=== PATIENT | female | born 1935 | race American Indian/Alaskan Native ===

== ENCOUNTER 2018-03-14 16:20 | Emergency (ER) | payer OTHER ==
[2018-03-14] MEDS ORDERED: ALBUTEROL 2.5 MG/3 ML NEB SOL ONE (17:12)
--- NOTE | 2018-03-14 17:17 | RAD REPORT ---
EXAM DESCRIPTION: Sonia Bolivar (2 Views)03/14/2018 5:04 pm CLINICAL HISTORY: Cough COMPARISON: July 2017 FINDINGS: The lungs appear clear of acute infiltrate. The heart is borderline enlarged IMPRESSION: No acute abnormalities displayed
--- NOTE | 2018-03-14 17:49 | EDPHYS ---
Physician Documentation [facility] Name: Eder Girard Age: 82 yrs Sex: Female : 1935 Arrival Date: 03/14/2018 Time: 16:21 Bed 26 Private MD: Roddy Mccarthy ED Physician Prasanth Talley HPI: 03/14 17:21 This 82 yrs old Other Female presents to ER via Ambulatory with complaints of Cough. snw 17:21 The patient or guardian reports cough, that is constant, with productive sputum, clear. snw Onset: The symptoms/episode began/occurred suddenly, 2 day(s) ago, and became persistent. Severity of symptoms: At their worst the symptoms were moderate. Modifying factors: The symptoms are alleviated by nothing. Associated signs and symptoms: Pertinent positives: chest pain, diarrhea, sore throat, discomfort to ribs from coughing, this patient has no pertinent positive symptoms. It is unknown whether or not the patient has had similar symptoms in the past. The patient has not recently seen a physician, the patient's primary care provider is Dr. Dr. Mccarthy. Historical: - Allergies: 16:28 PENICILLINS; la1 16:28 Codeine; la1 - PMHx: 16:28 Atrial Fib; Hypertension; la1 - Immunization history:: Adult Immunizations up to date. - Social history:: Smoking status: Patient/guardian denies using tobacco. ROS: 16:48 Constitutional: Negative for fever, chills, and weight loss, Eyes: Negative for injury, snw pain, redness, and discharge, ENT: Negative for injury, pain, and discharge, Neck: Negative for injury, pain, and swelling, Cardiovascular: Negative for chest pain, palpitations, and edema, Abdomen/GI: Negative for abdominal pain, nausea, vomiting, diarrhea, and constipation, Back: Negative for injury and pain, : Negative for injury, bleeding, discharge, and swelling, MS/Extremity: Negative for injury and deformity, Skin: Negative for injury, rash, and discoloration, Neuro: Negative for headache, weakness, numbness, tingling, and seizure. 16:48 Respiratory: Positive for cough, with clear sputum. Exam: 16:47 Constitutional: This is a well developed, well nourished patient who is awake, alert, snw and in no acute distress. Head/Face: Normocephalic, atraumatic. Eyes: Pupils equal round and reactive to light, extra-ocular motions intact. Lids and lashes normal. Conjunctiva and sclera are non-icteric and not injected. Cornea within normal limits. Periorbital areas with no swelling, redness, or edema. ENT: Nares patent. No nasal discharge, no septal abnormalities noted. Tympanic membranes are normal and external auditory canals are clear. Oropharynx with no redness, swelling, or masses, exudates, or evidence of obstruction, uvula midline. Mucous membranes moist. Neck: Trachea midline, no thyromegaly or masses palpated, and no cervical lymphadenopathy. Supple, full range of motion without nuchal rigidity, or vertebral point tenderness. No Meningismus. Chest/axilla: Normal chest wall appearance and motion. Nontender with no deformity. No lesions are appreciated. Cardiovascular: Regular rate and rhythm with a normal S1 and S2. No gallops, murmurs, or rubs. Normal PMI, no JVD. No pulse deficits. Abdomen/GI: Soft, non-tender, with normal bowel sounds. No distension or tympany. No guarding or rebound. No evidence of tenderness throughout. Back: No spinal tenderness. No costovertebral tenderness. Full range of motion. Skin: Warm, dry with normal turgor. Normal color with no rashes, no lesions, and no evidence of cellulitis. MS/ Extremity: Pulses equal, no cyanosis. Neurovascular intact. Full, normal range of motion. Neuro: Awake and alert, GCS 15, oriented to person, place, time, and situation. Cranial nerves II-XII grossly intact. Motor strength 5/5 in all extremities. Sensory grossly intact. Cerebellar exam normal. Normal gait. 16:47 Respiratory: the patient does not display signs of respiratory distress, Respirations: normal, shallow respirations, Breath sounds: wheezing: expiratory bronchitic cough. Vital Signs: 16:28 BP 143 / 83; Pulse 63; Resp 19; Temp 98.1(TE); Pulse Ox 97% on R/A; Weight 73.48 kg; la1 Height 5 ft. 3 in. (160.02 cm); 17:48 BP 144 / 77; Pulse 60; Resp 18; Pulse Ox 98% on R/A; kr2 16:28 Body Mass Index 28.70 (73.48 kg, 160.02 cm) la1 MDM: 16:34 Patient medically screened. snw 17:27 Data reviewed: vital signs, nurses notes. Data interpreted: Pulse oximetry: on room air snw is 97 %. Interpretation: normal. Counseling: I had a detailed discussion with the patient and/or guardian regarding: the historical points, exam findings, and any diagnostic results supporting the discharge/admit diagnosis, the presence of at least one elevated blood pressure reading (>120/80) during this emergency department visit, radiology results, the need for outpatient follow up, to return to the emergency department if symptoms worsen or persist or if there are any questions or concerns that arise at home. Special discussion: Based on the patient's history, exam, and Dx evaluation, there is no indication for emergent intervention or inpatient Tx. It is understood by the patient/guardian that if the Sx's persist or worsen they need to return immediately for re-evaluation. I have referred the patient to see his PCP for further evaluation of high blood pressure. Based on the history and exam findings, there is no indication for further emergent testing or inpatient evaluation. I discussed with the patient/guardian the need to see the primary care provider for further evaluation of the symptoms. 03/14 16:34 Order name: Chest Pa And Lat (2 Views) XRAY; Complete Time: 17:20 snw Administered Medications: 17:17 Drug: Albuterol 2.5 mg Route: Inhalation; kr2 17:29 Follow up: Response: No adverse reaction kr2 Disposition: 03/14/18 17:48 Discharged to Home. Impression: Cough. - Condition is Stable. - Discharge Instructions: Cool Mist Vaporizers, Cough, Adult, [id number]. - Prescriptions for Tessalon Perles 100 mg Oral Capsule - take 1 capsule by ORAL route every 8 hours As needed; 15 capsule. Albuterol Sulfate 90 mcg/actuation - inhale 1-2 puff by INHALATION route every 4-6 hours; 1 Inhaler. - Medication Reconciliation Form, Thank You Letter, Antibiotic Education, Prescription Opioid Use form. - Follow up: Roddy Mccarthy; When: 2 - 3 days; Reason: Recheck today's complaints, Continuance of care, Re-evaluation by your physician. Follow up: Emergency Department; When: As needed; Reason: Worsening of condition. Signatures: Dispatcher [employer] Skylar Oliva, CARRIE-C DATABASE MARKETING MANAGER-Csnw Darrion Nielsen, RN RN la1 Amanda Collins RN RN kr2
--- NOTE | 2018-03-14 17:49 | ER ---
Nurse's Notes [facility] Name: Eder Girard Age: 82 yrs Sex: Female : 1935 Arrival Date: 03/14/2018 Time: 16:21 Bed 26 Private MD: Roddy Mccarthy Diagnosis: Cough Presentation: 03/14 16:27 Presenting complaint: Patient states: I have had a cough for the last 2 days and I want la1 to be sure I am not developing PNE. Transition of care: patient was not received from another setting of care. Onset of symptoms was March 14, 2018. Initial Sepsis Screen: Does the patient meet any 2 criteria? No. Patient's initial sepsis screen is negative. Does the patient have a suspected source of infection? No. Patient's initial sepsis screen is negative. Care prior to arrival: None. 16:27 Method Of Arrival: Ambulatory la1 16:27 Acuity: MARC 4 la1 Historical: - Allergies: 16:28 PENICILLINS; la1 16:28 Codeine; la1 - PMHx: 16:28 Atrial Fib; Hypertension; la1 - Immunization history:: Adult Immunizations up to date. - Social history:: Smoking status: Patient/guardian denies using tobacco. Screenin:31 Abuse screen: Denies threats or abuse. Denies injuries from another. Nutritional kr2 screening: No deficits noted. Tuberculosis screening: No symptoms or risk factors identified. Fall Risk Fall in past 12 months (25 points). IV access (20 points). Assessment: 16:45 General: Appears in no apparent distress. comfortable, well groomed, well developed, kr2 well nourished, Behavior is calm, cooperative. Pain: Denies pain. Neuro: Level of Consciousness is awake, alert, Oriented to person, place, time, situation, Appropriate for age. Cardiovascular: Capillary refill < 3 seconds in bilateral fingers Patient's skin is warm and dry. Respiratory: Reports cough that is non-productive, persistent Airway is patent Respiratory effort is even, unlabored, Respiratory pattern is regular, symmetrical. GI: Abdomen is flat, non-distended. : No signs and/or symptoms were reported regarding the genitourinary system. EENT: Nares are clear bilaterally Oral mucosa is moist. Derm: Skin is intact, is healthy with good turgor, Skin is pink, warm \T\ dry. Musculoskeletal: Circulation, motion, and sensation intact. 17:50 Reassessment: Patient appears in no apparent distress at this time. Patient and/or kr2 family updated on plan of care and expected duration. Pain level reassessed. Patient is alert, oriented x 3, equal unlabored respirations, skin warm/dry/pink. Patient denies pain at this time. Vital Signs: 16:28 BP 143 / 83; Pulse 63; Resp 19; Temp 98.1(TE); Pulse Ox 97% on R/A; Weight 73.48 kg; la1 Height 5 ft. 3 in. (160.02 cm); 17:48 BP 144 / 77; Pulse 60; Resp 18; Pulse Ox 98% on R/A; kr2 16:28 Body Mass Index 28.70 (73.48 kg, 160.02 cm) la1 ED Course: 16:21 Patient arrived in ED. as 16:22 Roddy Mccarthy MD is Private Physician. as 16:28 Triage completed. la1 16:28 Arm band placed on right wrist. la1 16:35 Prasanth Talley MD is Attending Physician. snw 16:35 Skylar Reese FNP-C [facility]. snw 16:40 Amanda Collins, ROMANA is Primary Nurse. kr2 16:45 Patient has correct armband on for positive identification. Bed in low position. Call kr2 light in reach. Side rails up X2. Adult w/ patient. Pulse ox on. NIBP on. Door closed. Warm blanket given. Head of bed elevated. 17:01 X-ray completed. Patient tolerated procedure well. Patient moved to radiology via ag1 wheelchair. 17:03 Chest Pa And Lat (2 Views) XRAY In Process Unspecified. EDMS 17:48 Roddy Mccarthy MD is Referral Physician. snw 17:53 No provider procedures requiring assistance completed. Patient did not have IV access kr2 during this emergency room visit. Administered Medications: 17:17 Drug: Albuterol 2.5 mg Route: Inhalation; kr2 17:29 Follow up: Response: No adverse reaction kr2 Outcome: 17:48 Discharge ordered by . snw 17:53 Discharged to home ambulatory, with family. kr2 17:53 Condition: good 17:53 Discharge instructions given to patient, family, Instructed on discharge instructions, follow up and referral plans. medication usage, Demonstrated understanding of instructions, follow-up care, medications, Prescriptions given X 2. 17:54 Patient left the ED. kr2 Signatures: Dispatcher [employer] EDMS Skylar Reese, DATABASE MARKETING MANAGER-C DATABASE MARKETING MANAGER-Csnw Saida Parikh Lee RN RN la1 Sonia Ballard ag1 Amanda Collins RN RN kr2 Corrections: (The following items were deleted from the chart) 17:32 17:29 BP 148 / 67 Supine; Pulse 70bpm; kr2 kr2 17:32 17:29 BP 145 / 71 Sitting; Pulse 70bpm; kr2 kr2 17:32 17:29 BP 160 / 74 Standing; Pulse 80bpm; Says she feels very weak upon standing; kr2 kr2
[2018-03-14 18:03] VITALS: TEMP 98.1
[2018-03-14 18:04] VITALS: BP 144/77; O2SAT 98
== END 2018-03-14 17:54 | disposition home or self-care (01) ==
LOC: ER 16:20
DX: R05 Cough (principal); Z88.0 Allergy status to penicillin; Z88.6 Allergy status to analgesic agent
CPT/HCPCS: 71046; 99284

== ENCOUNTER 2018-05-09 20:49 | Inpatient (IN) | payer OTHER ==
--- NOTE | 2018-05-09 22:20 | ER ---
Nurse's Notes [facility] Name: Eder Girard Age: 82 yrs Sex: Female : 1935 Arrival Date: 05/09/2018 Time: 20:52 Bed 17 Private MD: Roddy Mccarthy Diagnosis: Abdominal tenderness;Nausea;Nausea and vomiting Presentation: 05/09 21:13 Presenting complaint: Patient states: "I have been having abdominal pain for about 9 bs1 hours, I have had an obstruction before and it feels like that." patient reports nausea. Transition of care: patient was not received from another setting of care. Onset of symptoms was May 09, 2018 at 12:00. Risk Assessment: Do you want to hurt yourself or someone else? Patient reports no desire to harm self or others. Initial Sepsis Screen: Does the patient meet any 2 criteria? No. Patient's initial sepsis screen is negative. Does the patient have a suspected source of infection? No. Patient's initial sepsis screen is negative. Care prior to arrival: None. 21:13 Method Of Arrival: Ambulatory bs1 21:13 Acuity: MARC 3 bs1 Historical: - Allergies: 21:16 Codeine; bs1 21:16 PENICILLINS; bs1 - Home Meds: 21:16 Metoprolol Tartrate Oral [Active]; Eliquis oral oral [Active]; Hydrochlorothiazide Oral bs1 [Active]; - PMHx: 21:16 Atrial Fib; Hypertension; bowel obstruction; bs1 - PSHx: 21:16 colon sx; ; Cholecystectomy; Tonsillectomy; bs1 - Immunization history:: Adult Immunizations up to date. - Social history:: Smoking status: Patient/guardian denies using tobacco. - Ebola Screening: : Patient negative for fever greater than or equal to 101.5 degrees Fahrenheit, and additional compatible Ebola Virus Disease symptoms Patient denies exposure to infectious person. - Family history:: not pertinent. Screenin:17 Abuse screen: Denies threats or abuse. Denies injuries from another. Nutritional bs1 screening: No deficits noted. Tuberculosis screening: No symptoms or risk factors identified. Fall Risk None identified. Assessment: 22:03 General: Appears distressed, uncomfortable, well groomed, Behavior is calm, mb3 cooperative, appropriate for age. Pain: Complains of pain in right upper quadrant and left upper quadrant. Neuro: No deficits noted. Level of Consciousness is awake, alert, obeys commands, Oriented to person, place, time, situation, Appropriate for age. Cardiovascular: No deficits noted. Heart tones present Pulses are all present. Respiratory: Airway is patent Respiratory effort is even, unlabored, Respiratory pattern is regular, symmetrical, Breath sounds are clear bilaterally. GI: Abdomen is round obese, Bowel sounds present X 4 quads. Abd is soft Abdomen is tender to palpation in right upper quadrant and left upper quadrant. : No signs and/or symptoms were reported regarding the genitourinary system. Musculoskeletal: No deficits noted. No signs and/or symptoms reported regarding the musculoskeletal system. 23:00 Reassessment: Patient appears in no apparent distress at this time. Patient and/or mb3 family updated on plan of care and expected duration. Pain level reassessed. Patient is alert, oriented x 3, equal unlabored respirations, skin warm/dry/pink. Patient denies pain at this time. Vital Signs: 21:17 BP 157 / 96; Pulse 63; Resp 16; Pulse Ox 96% on R/A; Weight 73.48 kg; Height 5 ft. 3 bs1 in. (160.02 cm); Pain 10/10; 22:59 BP 163 / 54; Pulse 59; Resp 20; Pulse Ox 95% on R/A; mb3 21:17 Body Mass Index 28.70 (73.48 kg, 160.02 cm) bs1 ED Course: 20:52 Patient arrived in ED. es 20:53 Roddy Mccarthy MD is Private Physician. es 21:15 Triage completed. bs1 21:17 Patient has correct armband on for positive identification. Placed in gown. Bed in low bs1 position. Call light in reach. Side rails up X 1. Pulse ox on. NIBP on. 21:21 Marcel Sims MD is Attending Physician. [facility] 21:22 Peg Jo, ROMANA is Primary Nurse. bs1 21:22 Inserted saline lock: 22 gauge in right antecubital area, using aseptic technique. bs1 Blood collected. 22:19 Lizeth Salgado MD is Hospitalizing Provider. [facility] 05/10 00:04 Radiology exam delayed due to Patient did not finish oral contrast until 2340. Will do mw3 CT exam at approx. 0100. 01:[address] via wheelchair. kw1 01:21 CT completed. Patient tolerated procedure well. Patient moved back from [place]. kw1 01:46 No provider procedures requiring assistance completed. Patient admitted, IV remains in [address] place. 01:47 Arm band placed on. 3 Administered Medications: 05/09 22:30 Drug: NS 0.9% 500 ml Route: IV; Rate: bolus; Site: right antecubital; [facility] 05/10 01:47 Follow up: Response: No adverse reaction; IV Status: Completed infusion; IV Intake: mb3 500ml 05/09 22:30 Drug: NS 0.9% 1000 ml Route: IV; Rate: 125 ml/hr; Site: right antecubital; [facility] 05/10 01:48 Follow up: Response: No adverse reaction; IV Status: Infusion continued upon admission; [facility] IV Intake: 250ml 05/09 22:30 Drug: Pepcid 20 mg Route: IVP; Site: right antecubital; [facility] 05/10 01:48 Follow up: Response: No adverse reaction [facility] 05/09 22:30 Drug: Zofran 4 mg Route: IVP; Site: right antecubital; [facility] 05/10 01:48 Follow up: Response: No adverse reaction [facility] 05/09 22:30 Drug: fentaNYL (PF) 25 mcg Route: IVP; Site: right antecubital; [facility] 05/10 01:49 Follow up: Response: No adverse reaction [facility] 05/09 22:58 Drug: Flagyl 500 mg Volume: 100 ml; Route: IVPB; Rate: 200 ml/hr; Infused Over: 30 mb3 mins; Site: right antecubital; 05/10 01:49 Follow up: Response: No adverse reaction; IV Status: Completed infusion; IV Intake: mb3 100ml 00:02 Drug: Cipro 400 mg Volume: 200 ml; Route: IVPB; Infused Over: 60 mins; Site: right 3 antecubital; 01:49 Follow up: Response: No adverse reaction; IV Status: Completed infusion; IV Intake: mb3 200ml 00:03 Drug: fentaNYL (PF) 25 mcg Route: IVP; Site: right antecubital; [facility] 01:48 Follow up: Response: No adverse reaction mb3 00:27 Drug: morphine 4 mg Route: IVP; Site: right antecubital; mb3 01:50 Follow up: Response: No adverse reaction mb3 00:27 Drug: Zofran 4 mg Route: IVP; Site: right antecubital; mb3 01:50 Follow up: Response: No adverse reaction mb3 Intake: 01:47 IV: 500ml; Total: 500ml. mb3 01:48 IV: 250ml; Total: 750ml. mb3 01:49 IV: 200ml; Total: 950ml. mb3 01:49 IV: 100ml; Total: 1050ml. mb3 Outcome: 05/09 22:20 Decision to Hospitalize by Provider. [facility] 05/10 01:43 Admitted to Tele accompanied by tech, via stretcher, room 220, with chart, Report mb3 called to Brittany Bartlett RN Condition: stable Instructed on the need for admit. 01:56 Patient left the ED. mb3 Signatures: Marcel Sims MD MD cha Salyer, Edna es Wilhelm, Kimberly kw1 Peg Jo RN RN bs1 Cortes Lira RN RN mb3 Omayra Giordano mw3
--- NOTE | 2018-05-09 22:21 | EDPHYS ---
Physician Documentation [facility] Name: Eder Griard Age: 82 yrs Sex: Female : 1935 Arrival Date: 05/09/2018 Time: 20:52 Bed 17 Private MD: Roddy Mccarthy ED Physician Marcel Sims HPI: 05/09 22:16 This 82 yrs old Other Female presents to ER via Ambulatory with complaints of Abdominal maddie Pain. 22:16 The patient presents with abdominal pain in the epigastric area, in the upper abdomen, maddie abdominal distention in the epigastric area, in the upper abdomen. Onset: The symptoms/episode began/occurred 2 day(s) ago. The patient presents to the emergency department with nausea, vomiting, abdominal pain, of the epigastric area, right upper quadrant and left upper quadrant. Onset: The symptoms/episode began/occurred 1 day(s) ago. Possible causes: unknown. The symptoms are aggravated by movement, pressure, food , The symptoms are alleviated by nothing. remaining still. Associated signs and symptoms: Pertinent positives: abdominal pain, nausea, vomiting. Historical: - Allergies: 21:16 Codeine; bs1 21:16 PENICILLINS; bs1 - Home Meds: 21:16 Metoprolol Tartrate Oral [Active]; Eliquis oral oral [Active]; Hydrochlorothiazide Oral bs1 [Active]; - PMHx: 21:16 Atrial Fib; Hypertension; bowel obstruction; bs1 - PSHx: 21:16 colon sx; ; Cholecystectomy; Tonsillectomy; bs1 - Immunization history:: Adult Immunizations up to date. - Social history:: Smoking status: Patient/guardian denies using tobacco. - Ebola Screening: : Patient negative for fever greater than or equal to 101.5 degrees Fahrenheit, and additional compatible Ebola Virus Disease symptoms Patient denies exposure to infectious person. - Family history:: not pertinent. ROS: 22:16 Constitutional: Negative for fever, chills, and weight loss, Eyes: Negative for injury, maddie pain, redness, and discharge, ENT: Negative for injury, pain, and discharge, Neck: Negative for injury, pain, and swelling, Cardiovascular: Negative for chest pain, palpitations, and edema, Respiratory: Negative for shortness of breath, cough, wheezing, and pleuritic chest pain, Back: Negative for injury and pain, : Negative for injury, bleeding, discharge, and swelling, MS/Extremity: Negative for injury and deformity, Skin: Negative for injury, rash, and discoloration, Neuro: Negative for headache, weakness, numbness, tingling, and seizure, Psych: Negative for depression, anxiety, suicide ideation, homicidal ideation, and hallucinations, Allergy/Immunology: Negative for hives, rash, and allergies, Endocrine: Negative for neck swelling, polydipsia, polyuria, polyphagia, and marked weight changes, Hematologic/Lymphatic: Negative for swollen nodes, abnormal bleeding, and unusual bruising. 22:16 Abdomen/GI: Positive for abdominal pain, nausea and vomiting, nausea, vomiting, diarrhea, of the epigastric area, right upper quadrant and left upper quadrant. Exam: 22:16 Constitutional: This is a well developed, well nourished patient who is awake, alert, maddie and in no acute distress. Head/Face: Normocephalic, atraumatic. Eyes: Pupils equal round and reactive to light, extra-ocular motions intact. Lids and lashes normal. Conjunctiva and sclera are non-icteric and not injected. Cornea within normal limits. Periorbital areas with no swelling, redness, or edema. ENT: Nares patent. No nasal discharge, no septal abnormalities noted. Tympanic membranes are normal and external auditory canals are clear. Oropharynx with no redness, swelling, or masses, exudates, or evidence of obstruction, uvula midline. Mucous membranes moist. Neck: Trachea midline, no thyromegaly or masses palpated, and no cervical lymphadenopathy. Supple, full range of motion without nuchal rigidity, or vertebral point tenderness. No Meningismus. Chest/axilla: Normal chest wall appearance and motion. Nontender with no deformity. No lesions are appreciated. Cardiovascular: Regular rate and rhythm with a normal S1 and S2. No gallops, murmurs, or rubs. Normal PMI, no JVD. No pulse deficits. Respiratory: Lungs have equal breath sounds bilaterally, clear to auscultation and percussion. No rales, rhonchi or wheezes noted. No increased work of breathing, no retractions or nasal flaring. Back: No spinal tenderness. No costovertebral tenderness. Full range of motion. Female : Normal external genitalia. Skin: Warm, dry with normal turgor. Normal color with no rashes, no lesions, and no evidence of cellulitis. MS/ Extremity: Pulses equal, no cyanosis. Neurovascular intact. Full, normal range of motion. Neuro: Awake and alert, GCS 15, oriented to person, place, time, and situation. Cranial nerves II-XII grossly intact. Motor strength 5/5 in all extremities. Sensory grossly intact. Cerebellar exam normal. Normal gait. Psych: Awake, alert, with orientation to person, place and time. Behavior, mood, and affect are within normal limits. 22:16 Abdomen/GI: Inspection: abdomen appears normal, Bowel sounds: normal, Palpation: mild abdominal tenderness, moderate abdominal tenderness, in the epigastric area, right upper quadrant and left upper quadrant, Liver: no appreciated palpable abnormalities, Hernia: not appreciated. Vital Signs: 21:17 BP 157 / 96; Pulse 63; Resp 16; Pulse Ox 96% on R/A; Weight 73.48 kg; Height 5 ft. 3 bs1 in. (160.02 cm); Pain 10/10; 22:59 BP 163 / 54; Pulse 59; Resp 20; Pulse Ox 95% on R/A; mb3 21:17 Body Mass Index 28.70 (73.48 kg, 160.02 cm) bs1 MDM: 21:21 Patient medically screened. [facility] [place] 22:16 Data reviewed: vital signs, nurses notes, lab test result(s), EKG, radiologic studies, [facility] [place] CT scan, plain films. 05/09 22:15 Order name: Basic Metabolic Panel [facility] [place] 05/09 22:15 Order name: BNP; Complete Time: 00:20 [facility] [place] 05/09 22:15 Order name: CBC with Diff; Complete Time: 00:20 [facility] [place] 05/09 22:15 Order name: Ckmb; Complete Time: 00:20 [facility] [place] 05/09 22:15 Order name: CPK; Complete Time: 00:20 [facility] [place] 05/09 22:15 Order name: LFT's; Complete Time: 00:20 [facility] [place] 05/09 22:15 Order name: Magnesium; Complete Time: 00:20 [facility] [place] 05/09 22:15 Order name: PT-INR; Complete Time: 00:20 [facility] [place] 05/09 22:15 Order name: Ptt, Activated; Complete Time: 00:20 [facility] [place] 05/09 22:15 Order name: Troponin (emerg Dept Use Only); Complete Time: 00:20 [facility] [place] 05/09 22:15 Order name: XRAY Chest (1 view) [facility] [place] 05/09 22:15 Order name: Lipase; Complete Time: 00:20 [facility] [place] 05/09 22:15 Order name: CT Abd/Pelvis - W/Contrast [facility] [place] 05/09 22:15 Order name: Basic Metabolic Panel; Complete Time: 00:20 [facility] 05/09 22:15 Order name: EKG; Complete Time: 22:16 [facility] [place] 05/09 22:15 Order name: Cardiac monitoring; Complete Time: 23:18 [facility] [place] 05/09 22:15 Order name: EKG - Nurse/Tech; Complete Time: 23:18 [facility] [place] 05/09 22:15 Order name: IV Saline Lock; Complete Time: 22:19 [facility] [place] 05/09 22:25 Order name: CONS Physician Consult [facility] 05/09 22:25 Order name: Abdomen W Erect [facility] 05/09 22:15 Order name: Labs collected and sent; Complete Time: 22:19 [facility] [place] 05/09 22:15 Order name: O2 Per Protocol; Complete Time: 22:19 [facility] [place] 05/09 22:15 Order name: O2 Sat Monitoring; Complete Time: 22:19 [facility] [place] 05/09 22:15 Order name: Urine Dipstick-Ancillary (obtain specimen) [facility] [place] Administered Medications: 22:30 Drug: NS 0.9% 500 ml Route: IV; Rate: bolus; Site: right antecubital; [facility] 05/10 01:47 Follow up: Response: No adverse reaction; IV Status: Completed infusion; IV Intake: mb3 500ml 05/09 22:30 Drug: NS 0.9% 1000 ml Route: IV; Rate: 125 ml/hr; Site: right antecubital; [facility] 05/10 01:48 Follow up: Response: No adverse reaction; IV Status: Infusion continued upon admission; 3 IV Intake: 250ml 05/09 22:30 Drug: Pepcid 20 mg Route: IVP; Site: right antecubital; [facility] 05/10 01:48 Follow up: Response: No adverse reaction [facility] 05/09 22:30 Drug: Zofran 4 mg Route: IVP; Site: right antecubital; [facility] 05/10 01:48 Follow up: Response: No adverse reaction [facility] 05/09 22:30 Drug: fentaNYL (PF) 25 mcg Route: IVP; Site: right antecubital; mb3 05/10 01:49 Follow up: Response: No adverse reaction mb3 05/09 22:58 Drug: Flagyl 500 mg Volume: 100 ml; Route: IVPB; Rate: 200 ml/hr; Infused Over: 30 mb3 mins; Site: right antecubital; 05/10 01:49 Follow up: Response: No adverse reaction; IV Status: Completed infusion; IV Intake: mb3 100ml 00:02 Drug: Cipro 400 mg Volume: 200 ml; Route: IVPB; Infused Over: 60 mins; Site: right mb3 antecubital; 01:49 Follow up: Response: No adverse reaction; IV Status: Completed infusion; IV Intake: mb3 200ml 00:03 Drug: fentaNYL (PF) 25 mcg Route: IVP; Site: right antecubital; mb3 01:48 Follow up: Response: No adverse reaction mb3 00:27 Drug: morphine 4 mg Route: IVP; Site: right antecubital; mb3 01:50 Follow up: Response: No adverse reaction mb3 00:27 Drug: Zofran 4 mg Route: IVP; Site: right antecubital; mb3 01:50 Follow up: Response: No adverse reaction mb3 Disposition: 05/09/18 22:20 Hospitalization ordered by Lizeth Salgado for Inpatient Admission. Preliminary diagnosis are Abdominal tenderness, Nausea, Nausea and vomiting. - Bed requested for Telemetry/MedSurg (Inpatient). - Status is Inpatient Admission. mb3 - Condition is Fair. - Problem is new. - Symptoms have improved. UTI on Admission? No Signatures: Dispatcher [employer] EDAlina Ross RN RN kl Anderson, Corey, MD MD cha Salazar, Brittany RN RN bs1 Cortes Lira RN RN mb3 Corrections: (The following items were deleted from the chart) 05/09 23:42 22:20 Hospitalization Ordered by Lizeth Salgado MD for Inpatient Admission. Preliminary kl diagnosis is Abdominal tenderness; Nausea; Nausea and vomiting. Bed requested for Telemetry/MedSurg (Inpatient). Status is Inpatient Admission. Condition is Fair. Problem is new. Symptoms have improved. UTI on Admission? No. maddie 05/10 01:56 05/09 23:42 05/09/2018 22:20 Hospitalization Ordered by Lizeth Salgado MD for Inpatient mb3 Admission. Preliminary diagnosis is Abdominal tenderness; Nausea; Nausea and vomiting. Bed requested for Telemetry/MedSurg (Inpatient). Status is Inpatient Admission. Condition is Fair. Problem is new. Symptoms have improved. UTI on Admission? No. kl
[2018-05-09] MEDS ORDERED: FENTANYL CITR 100 MCG/2 ML ONE ×2 (22:24→23:53)
[2018-05-09] MEDS ORDERED: ONDANSETRON 4 MG/2 ML VIAL ONE (22:25)
[2018-05-09] MEDS ORDERED: NA CHLORIDE 0.9% 500 ML ONE (22:25)
[2018-05-09] MEDS ORDERED: NA CHLORIDE 0.9% 1,000 ML ONE (22:25)
[2018-05-09] MEDS ORDERED: CIPROFLOXACIN 400mg IV 400 MG/200 ML BAG IV ONE (22:25)
[2018-05-09] MEDS ORDERED: METRONIDAZOLE 500mg IVPB 500 MG/100 ML BAG IV ONE (22:25)
[2018-05-09] MEDS ORDERED: FAMOTIDINE 20 MG/2 ML VIAL IV ONE (22:25)
[2018-05-09 22:43] LABS: Absolute Lymphocytes (CBC) 2.1 K/uL (0.7-4.9); Absolute Monocytes 0.8 K/uL (0.1-1.3); Absolute Neutrophil 6.7 K/uL (1.8-8.0); Basophils % 0.5 % (0-1.3); Eosinophils % 0.9 % (0-4.4); Lymphocytes % 21.7 % (15.3-44.8); MCH 29.8 pg (27.0-35.0); MCV 84.6 fL (80-100); MPV 8.4 fL (7.6-11.3); RBC Red Blood Cell Count 4.61 M/uL (3.86-4.86)
[2018-05-09 22:49] LABS: Protime INR 1.68
[2018-05-09 22:58] LABS: Potassium 4.1 mEq/L (3.6-5.0)
[2018-05-09 23:04] LABS: Albumin 4.4 g/dL (3.2-5.5); Bilirubin Direct 0.1 mg/dL (0-0.2); Bilirubin Total 0.7 mg/dL (0.3-1.2); Magnesium 1.9 mg/dL (1.8-2.5); Protein, Total 7.3 g/dL (6.0-8.3)
[2018-05-09 23:06] LABS: CKMB Creatine Kinase MB 1.9 ng/ml (0.3-4.0)
--- NOTE | 2018-05-09 23:25 | P.HP ---
Certification for Inpatient Patient admitted to: Inpatient With expected LOS: >2 Midnights Practitioner: I am a practitioner with admitting privileges, knowledge of patient current condition, hospital course, and medical plan of care. Services: Services provided to patient in accordance with Admission requirements found in Title 42 Section 412.3 of the Code of Federal Regulations Patient History Date of Service: 05/09/18 Reason for admission: abdominal pain History of Present Illness: Ms Girard is an 82 years old woman with history of TIA, A.Fib, anticoagulated with Eliquis, multiple abdominal surgeries, recurrent episodes of SBO (four), who came to ED complaining of abdominal pain associated with nausea but not vomiting. Her symptoms started this morning about 11:00 AM. She denied any fever or chills. Her pain was localized in her upper abdomen, colicky like, 10/ 10 of maximum intensity. In ED lab work showed normal WBC count, normal liver function and pancreatic enzymes. Last bowel movement was this morning, and after that she has not been able to pass gas. Allergies codeine Allergy (Unverified 03/14/18 17:57) Unknown Penicillins Allergy (Verified 05/16/15 11:46) Rash Home Medications: ALPRAZolam [Xanax] 0.25 mg PO Q8HP PRN 05/16/15 Amiodarone HCl 1 tab PO DAILY 05/16/15 Cyclosporine [Restasis] 1 drop OD BID 05/16/15 Dabigatran Etexilate Mesylate [Pradaxa] 1 cap PO BID 05/16/15 Esomeprazole Mag Trihydrate [Nexium] 1 cap PO DAILY 05/16/15 Latanoprost 1 drop OD Q8HP PRN 05/16/15 Metoprolol Tartrate [Lopressor*] 1 tab PO BID 05/16/15 Zolpidem Tartrate [Ambien*] 1 tab PO BEDTIME PRN PRN 05/16/15 - Past Medical/Surgical History Diabetic: No -: afib -: colon cancer -: tia -: colon resection -: -: cholecystectomy - Family History Family History: Reviewed- Non-Contributory - Social History Smoking Status: Never smoker Alcohol use: No CD- Drugs: No Caffeine use: No Place of Residence: Home Review of Systems 10-point ROS is otherwise unremarkable Physical Examination - Physical Exam General: Alert, Mild distress (due to abdominal pain) HEENT: Atraumatic, PERRLA, Mucous membr. moist/pink, EOMI, Sclerae nonicteric Neck: Supple, 2+ carotid pulse no bruit, No LAD, Without JVD or thyroid abnormality Respiratory: Clear to auscultation bilaterally, Normal air movement Cardiovascular: Regular rate/rhythm, Normal S1 S2 Gastrointestinal: Normal bowel sounds, No tenderness Musculoskeletal: No tenderness Integumentary: No rashes Neurological: Normal speech, Normal strength at 5/5 x4 extr, Normal tone, Normal affect Lymphatics: No axilla or inguinal lymphadenopathy - Studies Laboratory Data (last 24 hrs) 05/09/18 21:14: PT 19.9 H, INR 1.68, APTT 34.0 05/09/18 21:14: WBC 9.7, Hgb 13.7, Hct 39.0, Plt Count 272 05/09/18 21:14: B-Natriuretic Peptide 188 H 05/09/18 21:14: Sodium 131 L, Potassium 4.1, BUN 13, Creatinine 0.75, Glucose 110, Magnesium 1.9, Total Bilirubin 0.7, AST 21, ALT 15, Alkaline Phosphatase 50 , Lipase 25 Assessment and Plan - Problems (Diagnosis) (1) Abdominal pain Current Visit: Yes Status: Acute Qualifiers: Abdominal location: upper abdomen, unspecified Qualified Code(s): R10.10 - Upper abdominal pain, unspecified (2) Afib Current Visit: Yes Status: Acute Qualifiers: Atrial fibrillation type: chronic Qualified Code(s): I48.2 - Chronic atrial fibrillation (3) Hx SBO Current Visit: Yes Status: Acute - Plan The patient will be admitted to the hospital due to abdominal pain, possible SBO due to clinical presentation. Still pending CT abd/pelvis. Will order IV fluids and symptomatic medication for N/V and abdominal pain. Consult Dr Sanchez. - Advance Directives Does patient have a Living Will: No Does patient have a Durable POA for Healthcare: No - Code Status/Comfort Care Code Status Assessed: Yes Code Status: Full Code
[2018-05-10] MEDS ORDERED: MORPHINE 4 MG/ML SYR ONE (00:19)
[2018-05-10] MEDS ORDERED: ONDANSETRON 4 MG/2 ML VIAL ONE (00:19)
[2018-05-10] MEDS ORDERED: KETOROLAC 30 MG/ML INJ IV PRN (02:08)
[2018-05-10] MEDS ORDERED: ONDANSETRON 4 MG/2 ML VIAL IV PRN (02:08)
[2018-05-10] MEDS ORDERED: NA CHLORIDE 0.9% 1,000 ML IV SCH (02:08)
[2018-05-10 04:11] VITALS: O2SAT 94
[2018-05-10 05:21] LABS: Urine Appearance CLEAR; Urine Bilirubin NEGATIVE (NEG); Urine Blood NEGATIVE (NEG); Urine Color YELLOW; Urine Glucose NEGATIVE (NEG); Urine Protein NEGATIVE (NEG); Urine Specific Gravity >=1.030 (1.005-1.030); Urine Urobilinogen 0.2 mg/dL (0.2-1.0)
[2018-05-10] MEDS: METRONIDAZOLE 500mg IVPB 500 MG/100 ML BAG IV SCH ×4 (05:32→23:47)
[2018-05-10] MEDS: NA CHLORIDE 0.9% 1,000 ML IV SCH ×3 (05:33→20:48)
[2018-05-10 05:41] LABS: Urine Microscopic Reflex NO UMIC
--- NOTE | 2018-05-10 06:40 | EKG ---
Test Date: 2018-05-09 Test Time: 23:16:04 [employer] Worker: KELSIE MEASUREMENT RESULTS: Intervals: Rate: 56 MS: 172 QRSD: 80 QT: 480 QTc: 463 [place]: P: 55 MS: 172 QRS: -11 T: 9 INTERPRETIVE STATEMENTS: Sinus bradycardia Nonspecific ST and T wave abnormality Abnormal ECG Compared to ECG 05/16/2015 05:55:24 Sinus rhythm no longer present ST (T wave) deviation still present Electronically Signed On 05-10-18 06:39:[address]
[2018-05-10] MEDS: CIPROFLOXACIN 400mg IV 400 MG/200 ML BAG IV SCH ×2 (08:15→20:41)
--- NOTE | 2018-05-10 10:59 | CON ---
Date of Consultation: 05/10/2018 Reason For Consultation: Small bowel obstruction. History Of Present Illness: The patient is an 82-year-old female with multiple medical problems, ant icoagulated with Eliquis for AFib, has multiple abdominal surgeries, and she has had recurrent episod es of small bowel obstruction in the past, who came into the emergency room complaining of abdominal pain associated with nausea, but she does not vomit. Her last bowel movement was yesterday. She did pass gas yesterday. She has no sore throat, runny nose, cough, headaches, or dizziness. No chest p ain. The pain initially was colicky in the upper abdomen; however, is improved since she has been ad mitted. No blood in her stool. No dysuria or hematuria. Review of Systems: Otherwise unremarkable. Past Medical History: Significant for AFib, colon cancer, and TIA. Past Surgical History: , colon resection, cholecystectomy. Allergies: CODEINE AND PENICILLIN. Social History: She does not smoke or drink. Family History: Noncontributory. Physical Examination: Vital Signs: Stable. She is afebrile. General: She is awake, alert, and oriented x3. Head and Neck: Cranial nerves 2 through 12 are grossly within normal limits. No neck masses. No JV D. Throat clear. Neck is supple. Chest: Clear. Heart: S1, S2. Abdomen: Mild distention. Slightly hypoactive bowel sounds, but there is no tenderness at all. No rebound, rigidity, or guarding. No evidence of any peritonitis. Well-healed midline and right upper quadrant scars. No abdominal wall hernia appreciated. Laboratory Data: White count is normal. There is no left shift. INR is 1.6 today. Chemistry revie wed, and CT of the abdomen and pelvis reviewed with Dr. Ibanez as well as followup x-ray this gautam mayfield. Essentially, the patient does have some stool in her small bowel with distal collapse of the ile um; however, she has stool and air in her colon as well and there is some proximal dilatation where a s there was some stool present in the colon. Assessment: Small bowel obstruction, likely partial. Recommendations: If the patient vomits, she needs an NG tube. Continue IV fluids and IV antibiotics . We will check another x-ray tomorrow. If there is no improvement by that time, then she may benef it from a small bowel series. At this time, the patient does not have peritonitis and there is no ne ed for any intervention, however, should conservative measures fails, she may require intervention. Plan of care discussed in detail with the patient, her , and Dr. Castañeda. /MODL Voice ID: [id number] Report ID: [id number]
--- NOTE | 2018-05-10 11:15 | RAD REPORT ---
EXAM DESCRIPTION: RAD - Abdomen W Erect - 05/10/2018 8:33 am CLINICAL HISTORY: abd pain, sbo Pain COMPARISON: ABDOMEN W ERECT dated 05/17/2015; Abdomen Pelvis W Contrast dated 05/10/2018 FINDINGS: Multiple dilated small bowel loops are again noted compatible with moderate mechanical sma ll-bowel obstruction, appearing unchanged since recent CT. Cholecystectomy clips noted. Postsurgical clips are seen in the left abdomen. No evidence of pneumoperitoneum. IMPRESSION: Stable appearance of moderate SBO pattern.
[2018-05-10] MEDS ORDERED: ZOLPIDEM TARTRATE 5 MG TABLET PO PRN (11:20)
--- NOTE | 2018-05-10 11:20 | P.PN ---
Subjective Date of Service: 05/10/18 Primary Care Provider: Dr Mccarthy Chief Complaint: abdominal pain Pt seen and examined at bedside with RN. Chart reviewed. Case DW with gen surgery. Doing well overall. Refusing NG tube at this time. denies BM but + Flatulence. No nausea after zofran. Review of Systems General: As per HPI Physical Examination - Vital Signs Temperature: 98.3 F Blood Pressure: 138/61 Pulse: 57 Respirations: 16 Pulse Ox (%): 95 - Physical Exam General: Alert, In no apparent distress HEENT: Atraumatic, PERRLA, EOMI Neck: Supple, JVD not distended Respiratory: Clear to auscultation bilaterally, Normal air movement Cardiovascular: Regular rate/rhythm, Normal S1 S2 Gastrointestinal: Normal bowel sounds, No tenderness Musculoskeletal: No tenderness Integumentary: No rashes Neurological: Normal speech, Normal tone, Normal affect Lymphatics: No axilla or inguinal lymphadenopathy - Studies Laboratory Data (last 24 hrs) 05/09/18 21:14: PT 19.9 H, INR 1.68, APTT 34.0 05/09/18 21:14: WBC 9.7, Hgb 13.7, Hct 39.0, Plt Count 272 05/09/18 21:14: B-Natriuretic Peptide 188 H 05/09/18 21:14: Sodium 131 L, Potassium 4.1, BUN 13, Creatinine 0.75, Glucose 110, Magnesium 1.9, Total Bilirubin 0.7, AST 21, ALT 15, Alkaline Phosphatase 50 , Lipase 25 Medications List Reviewed: Yes Assessment & Plan - Problems (Diagnosis) (1) Bowel obstruction Onset Date: 05/17/15 Current Visit: No Status: Acute Plan: Partial Bowel Obstruction -NPO, Iv Fluids -Gen Surgery Consulted. -Check KUB tomorrow. -If there is no improvement by that time, then she may benefit from a small bowel series. -NG tube if Persistent Nausea. Qualifiers: Intestinal obstruction type: obstruction due to adhesions Intestinal obstruction extent: partial Qualified Code(s): K56.51 - Intestinal adhesions [ bands], with partial obstruction (2) Afib Current Visit: Yes Status: Chronic Qualifiers: Atrial fibrillation type: chronic Qualified Code(s): I48.2 - Chronic atrial fibrillation Discharge Plan: Home Plan to discharge in: 24 Hours - Code Status/Comfort Care Code Status Assessed: Yes Critical Care: No
--- NOTE | 2018-05-10 12:03 | RAD REPORT ---
EXAM DESCRIPTION: CTAbdomen Pelvis W Contrast - 05/10/2018 7:29 am CLINICAL HISTORY: Abdominal pain. ABD PAIN COMPARISON: CT ABD PELVIS W CONTRAST dated 05/16/2015; CT ABD PELVIS W CONTRAST dated 10/19/2008 TECHNIQUE: Biphasic CT imaging of the abdomen and pelvis was performed with 100 ml non-ionic IV cont rast. All CT scans are performed using dose optimization technique as appropriate and may include automated exposure control or mA/KV adjustment according to patient size. FINDINGS: The lung bases are clear.Small hiatal hernia. Irregular polypoid lesion is seen anterior a spect of the stomach measuring 20 x 17 mm. Trace fluid is seen along the hepatic edge. Mild fatty liver is seen. No focal mass or biliary dilata tion. Tiny cyst is present posterior left lobe liver measuring 7 mm. The spleen, adrenal glands and k idneys are within normal limits. Mild pancreatic atrophy. Postsurgical changes are present in the left abdomen. Multiple dilated small bowel loops are present with decompressed ileum. No intra-abdominal abscess seen. No free air. The appendix is normal. Trace fluid is seen in the right lower quadrant. No evidence of significant lymphadenopathy. No suspicious bony findings. IMPRESSION: Moderate mechanical small-bowel obstruction. Polypoid lesion (20 x 17 mm) anterior aspect of the stomach. Upper endoscopy for direct visualization advised. Findings were discussed with Dr. Sanchez 11:58 am 05/10/2018 by telephone.
--- NOTE | 2018-05-10 12:31 | RAD REPORT ---
EXAM DESCRIPTION: RAD - Chest Single View - 05/09/2018 11:28 pm CLINICAL HISTORY: ABDOMINAL DISTENTION Chest pain. COMPARISON: Chest Pa And Lat (2 Views) dated 03/14/2018; Chest Pa And Lat (2 Views) dated 08/21/2017; CHEST SINGLE VIEW dated 05/16/2015; CHEST PA AND LAT 2 VIEW dated 04/28/2013 FINDINGS: Portable technique limits examination quality. The lungs are grossly clear. The heart is mildly enlarged. No displaced fractures.Tortuous thoracic a christ. IMPRESSION: Mild cardiomegaly.
[2018-05-10] MEDS: METOPROLOL TAR 50 MG TAB PO SCH ×2 (13:00→20:43)
[2018-05-10] MEDS: hydroCHLOROthiazide 12.5 MG CAP PO SCH (13:00)
[2018-05-10] MEDS: DRONEDARONE 400 MG TAB PO SCH ×2 (13:00→20:45)
[2018-05-10] MEDS: APIXABAN 2.5 MG TABLET PO SCH ×2 (14:03→20:43)
[2018-05-10] MEDS ORDERED: HOME MED 1 EA UNK (Metoprolol Tartrate [Metoprolol Tartrate] 100 MG) PO SCH (21:00)
[2018-05-11] MEDS: METRONIDAZOLE 500mg IVPB 500 MG/100 ML BAG IV SCH ×3 (05:02→17:01)
[2018-05-11] MEDS: NA CHLORIDE 0.9% 1,000 ML IV SCH ×2 (05:02→12:02)
[2018-05-11 05:15] LABS: Absolute Lymphocytes (CBC) 1.4 K/uL (0.7-4.9); Absolute Monocytes 0.5 K/uL (0.1-1.3); Absolute Neutrophil 2.6 K/uL (1.8-8.0); Basophils % 0.5 % (0-1.3); Eosinophils % 2.9 % (0-4.4); Hematocrit 32.6 % (36.0-45.0); Lymphocytes % 29.4 % (15.3-44.8); MCV 85.5 fL (80-100); Monocytes % 10.8 % (3.3-12.3); RBC Red Blood Cell Count 3.82 M/uL (3.86-4.86)
[2018-05-11 05:24] VITALS: BMI 28.9
[2018-05-11 05:43] LABS: Magnesium 1.8 mg/dL (1.8-2.5); Phosphorus 3.7 mg/dL (2.5-4.3); Potassium 3.4 mEq/L (3.6-5.0)
[2018-05-11] MEDS: KCL 20 MEQ/100 mL IVPB 20 MEQ/100 ML BAG IV SCH ×2 (06:07→08:49)
--- NOTE | 2018-05-11 08:01 | RAD REPORT ---
EXAM DESCRIPTION: RAD - Abdomen W Erect - 05/11/2018 7:08 am CLINICAL HISTORY: Abdominal pain, small bowel obstruction COMPARISON: Acute abdomen series May 10, CT abdomen May 10 TECHNIQUE: Supine and upright views of the abdomen were obtained. FINDINGS: The oral CT contrast from May 10 is not distributed throughout nondilated colon to the le nehemiah of the rectum. No extravasation of contrast. Small bowel has decreased in prominence. No free air or pneumatosis. Numerous surgical clips remain in the left mid abdomen with cholecystectomy clips in the right upper quadrant. IMPRESSION: Significant improvement in the small bowel obstruction pattern since May 10. Oral CT contrast has reached the distal rectum. No free air or pneumatosis.
[2018-05-11] MEDS: CIPROFLOXACIN 400mg IV 400 MG/200 ML BAG IV SCH (08:49)
[2018-05-11] MEDS: APIXABAN 2.5 MG TABLET PO SCH (08:51)
[2018-05-11] MEDS: hydroCHLOROthiazide 12.5 MG CAP PO SCH (08:51)
[2018-05-11] MEDS: METOPROLOL TAR 50 MG TAB PO SCH (08:51)
[2018-05-11] MEDS: DRONEDARONE 400 MG TAB PO SCH (08:52)
[2018-05-11] MEDS ORDERED: MAGNESIUM SULFATE 1 gm IVPB 1 GM/100 ML BAG IV ONE (10:00)
--- NOTE | 2018-05-11 11:36 | PN ---
Date of Progress Note: 05/11/2018 Subjective: The patient is awake, alert. Had 3 bowel movements. Objective: Vital Signs: Stable. Afebrile. Abdomen: Benign. Diagnostic Data: X-ray shows marked improvement in the small bowel obstruction pattern. Assessment: Small bowel obstruction, likely resolved. Recommendations: We will begin clear liquids, advance as tolerated. Probably discharge in the next 24-48 hours. /MODL Voice ID: [id number] Report ID: [id number]
[2018-05-11 16:17] VITALS: BP 144/63; TEMP 97.8
--- NOTE | 2018-05-12 11:19 | PN ---
Date of Progress Note: 05/11/2018 Subjective: The patient continues to improve when seen. She just tolerated her first liquid diet si nce her admission. will be advanced. She feels basically back to baseline. No further n ausea or abdominal pain. She tolerates a soft diet. Later on today, she could be discharged. Kevin w up on an outpatient basis. It should be noted that a gastric polyp was described on CT scan. She needs to be referred to a doctor of nursing practice for this. HR/MODL Voice ID: [id number] Report ID: [id number]
--- NOTE | 2018-06-22 17:46 | DS ---
Date of Discharge: 05/11/2018 Hospital Course: The patient was admitted to the hospital on 05/09 after presenting to the emergency room with abdominal pain. Diagnosis of incomplete small bowel obstruction versus diverticulitis was made. However, the patient has had similar episodes in the past with conservative treatment of smal l bowel and complete obstruction. It usually takes a couple of days, and in this case, it was the [facility] scenario. She was gradually increased to tolerate fluids and then solids. She was hydrated, felt much better. A note of a gastric polyp was made, and the patient felt well enough to be discharged on her usual diet and medications on 05/11 to follow up with myself and web production artist. Final Diagnoses: Incomplete small bowel obstruction, gastric polyp. HR/MODL Voice ID: [id number] Report ID: [id number]
== END 2018-05-11 18:56 | disposition home or self-care (01) | DRG 390 ==
LOC: ER 20:49 → ERHOLD 22:22 → 2ND 05-10 01:43
PROVIDERS: ADMIT Internal Medicine; ATTEND Family Medicine
DX: K56.51 Intestinal adhesions [bands], with partial obstruction (principal); I48.2 Chronic atrial fibrillation; I10 Essential (primary) hypertension; K31.7 Polyp of stomach and duodenum; Z79.01 Long term (current) use of anticoagulants; Z85.038 Personal history of other malignant neoplasm of large intestine; Z90.49 Acquired absence of other specified parts of digestive tract; Z86.73 Personal history of transient ischemic attack (TIA), and cerebral infarction without residual deficits; Z88.5 Allergy status to narcotic agent; Z88.0 Allergy status to penicillin
CPT/HCPCS: 36415; 71045; 74019; 74177; 80048; 80076; 81003; 82550; 82553; 83690; 83735; 83880; 84100; 84132; 84484; 85025; 85610; 85730; 93005; 96365; 96366; 96375; 99285; J0744; J2405; J3010; J3475; J7030; Q9967

== ENCOUNTER 2022-10-01 11:59 | Inpatient (IN) | payer OTHER ==
--- OUTSIDE RECORDS SUMMARY | 2022-10-01 12:02 | XMS REPORT | Continuity of Care Document ---
:1935 Author Organization [facility] t Address [address] [place] [address] Dr. Aguilar [address] [place] [id number] Care Team Providers Name Role Phone CAROLIN SAUNDERS Attending Clinician Unavailable Payers Payer Name Policy Type Policy Number Effective Date Expiration Date S stephen [employer] MEDICARE ERS [id number] 2017 00:00:00 [facility] [id number] 2020 MEDICARE ADV HMO 00:00:00 Problems This patient has no known problems. Allergies, Adverse Reactions, Alerts Allergy Allergy Status Severity Reaction(s) Onset Inactive Treating Comm ents Source Name Type Date Date Clinician CODEINE DRUG Active Unknown-Cmnt 2017-0 Uni vers INGREDI 5-30 ity of 00:00: [address] [place] Drug Active Unknown-Cmnt 2017-0 Un luc INS Class 5-30 ity of 00:: [address] Medications This patient has no known medications. Procedures This patient has no known procedures. Encounters Start End Encounter Admission Attending Care Care Encounter Source Date/Time Date/Time Type Type Clinicians Facility Department ID 2021-09-13 2021-09-13 Outpatient R [facility] [id number] [facility] 13:00[facility] [id number]-09[facility] 2021-09-13 Outpatient R [facility] [id number] [facility]-01[facility]17 2021-01-17 [facility] [id number] Univers 11:40:00 11:40:00 [facility]-01-17 2021-01-17 [facility] [id number] Univers 11:40:00 11:40:00 [facility] [id number] [facility] 2020-12-20 2020-12-20 Outpatient Jenny SAUNDERS [facility] [id number] [facility] 11:00:00 11:00:00 CAROLIN chandler [facility] Results This patient has no known results.
[2022-10-01 12:36] LABS: Absolute Lymphocytes (CBC) 2.2 K/uL (0.7-4.9); Lymphocytes % 33.4 % (15.3-44.8); MCV 86.8 fL (80-100); MPV 7.7 fL (7.6-11.3); RBC Red Blood Cell Count 4.72 M/uL (3.86-4.86)
[2022-10-01 12:59] LABS: Potassium 4.2 mmol/L (3.5-5.1); Troponin High Sensitivity 9.1 pg/mL (<58.9)
[2022-10-01 13:16] LABS: Urine Blood Negative (Negative); Urine Glucose Negative (Negative); Urine Protein Negative (Negative); Urine pH 7.5 (5.0-7.0)
--- NOTE | 2022-10-01 13:32 | RAD REPORT ---
EXAM DESCRIPTION: RAD - Chest Single View - 10/01/2022 1:25 pm CLINICAL HISTORY: afib Chest pain. COMPARISON: Chest Pa And Lat (2 Views) dated 11/11/2018; Chest Pa And Lat (2 Views) dated 11/04/2018 ; Chest Pa And Lat (2 Views) dated 11/02/2018; Chest Single View dated 05/09/2018 FINDINGS: Portable technique limits examination quality. Mild interstitial pulmonary edema. The heart is mildly enlarged. No displaced fractures. IMPRESSION: Mild CHF.
[2022-10-01] MEDS ORDERED: FUROSEMIDE 40 MG/4 ML VIAL ONE (13:46)
--- NOTE | 2022-10-01 13:56 | ER ---
Nurse's Notes [facility] Name: Eder Girard Age: 86 yrs Sex: Female : 1935 Arrival Date: 10/01/2022 Time: 12:00 Bed 2 Private MD: Eliel Smith S; Roddy Mccarthy Diagnosis: Persistent atrial fibrillation;Acute pulmonary edema;Dyspnea, unspecified Presentation: 10/01 12:14 Chief complaint: Patient states: I am very tired, my heart rate has been very irregular jh5 the last two days and I am getting SOB. I called Kinsey this morning and he said to meet him at the office at 2pm so he could shock it cause nothing else is working. Coronavirus screen: Vaccine status: Patient reports receiving the 2nd dose of the covid vaccine. Client denies travel out of the [place] in the last 14 days. Ebola Screen: Patient negative for fever greater than or equal to 101.5 degrees Fahrenheit, and additional compatible Ebola Virus Disease symptoms Patient denies exposure to infectious person. Patient denies travel to an Ebola-affected area in the 21 days before illness onset. Initial Sepsis Screen: Does the patient meet any 2 criteria? No. Patient's initial sepsis screen is negative. Does the patient have a suspected source of infection? No. Patient's initial sepsis screen is negative. Risk Assessment: Do you want to hurt yourself or someone else? Patient reports no desire to harm self or others. 12:14 Method Of Arrival: Ambulatory 5 12:14 Acuity: MARC 3 jh5 12:14 Onset of symptoms was October 01, 2022. mb9 Triage Assessment: 12:16 General: Appears uncomfortable, slender, well groomed, well developed, Behavior is jh5 calm, cooperative, appropriate for age. Pain: Complains of pain in chest. Cardiovascular: Reports chest pain, fatigue, palpitations, shortness of breath. Historical: - Allergies: 12:16 Codeine; jh5 12:16 PENICILLINS; jh5 - PMHx: 12:16 Atrial Fib; bowel obstruction; Hypertension; jh5 - Immunization history:: Adult Immunizations up to date. - Social history:: Smoking status: Patient denies any tobacco usage or history of. - Family history:: not pertinent. - Hospitalizations: : No recent hospitalization is reported. Screenin:25 Abuse screen: Denies threats or abuse. Nutritional screening: No deficits noted. tw2 Tuberculosis screening: No symptoms or risk factors identified. Fall Risk Secondary diagnosis (15 points) impaired mobility. Assessment: 12:33 General: Appears in no apparent distress. Behavior is calm, cooperative, appropriate mb9 for age. Pain: Denies pain. Neuro: Level of Consciousness is awake, alert, obeys commands, Oriented to person, place, time, situation, Appropriate for age Reports weakness since yesterday. Cardiovascular: Heart tones S1 S2 present Rhythm is atrial fibrillation Chest pain is denied. Respiratory: Reports shortness of breath at rest on exertion since yesterday Airway is patent Respiratory effort is even, unlabored, Respiratory pattern is regular, symmetrical, Breath sounds are clear bilaterally. GI: Abdomen is flat, Bowel sounds present X 4 quads. Abd is soft and non tender X 4 quads. : No signs and/or symptoms were reported regarding the genitourinary system. EENT: No signs and/or symptoms were reported regarding the EENT system. Derm: Skin is pink, warm \T\ dry. Musculoskeletal: Range of motion: intact in all extremities. 13:38 General: Appears in no apparent distress. Pain: Denies pain. Neuro: Level of mb9 Consciousness is awake, alert, obeys commands, Oriented to person, place, time, situation, Appropriate for age. Cardiovascular: Denies chest pain, Heart tones S1 S2 present Rhythm is atrial fibrillation. Respiratory: Reports shortness of breath Airway is patent Respiratory effort is even, unlabored, Respiratory pattern is regular, symmetrical, Breath sounds are clear bilaterally. Derm: Skin is pink, warm \T\ dry. 15:00 Neuro: Level of Consciousness is awake, alert, obeys commands, Oriented to person, mb9 place, time, situation, Appropriate for age. Cardiovascular: Denies chest pain, Heart tones S1 S2 present Rhythm is sinus tachycardia. Respiratory: Airway is patent Denies shortness of breath. Derm: Skin is pink, warm \T\ dry. 16:46 Reassessment: gave report to admitting nurse ROMANA Lazaro. mb9 Vital Signs: 12:14 BP 164 / 79; Pulse 96; Resp 16; Temp 98.6; Pulse Ox 98% ; Weight 68.04 kg; Height 5 ft. jh5 0 in. (152.40 cm); Pain 3/10; 12:32 BP 164 / 79; Pulse 84; Resp 18; Pulse Ox 100% on R/A; mb9 13:39 BP 164 / 79; Pulse 81; Resp 20; Pulse Ox 98% on R/A; mb9 14:30 BP 137 / 85; Pulse 85; Resp 17; Pulse Ox 99% on R/A; tw2 15:30 BP 136 / 78; Pulse 81; Resp 17; Pulse Ox 97% on R/A; tw2 16:24 BP 111 / 82; Pulse 91; Resp 17; Pulse Ox 97% on R/A; tw2 12:14 Body Mass Index 29.29 (68.04 kg, 152.40 cm) 5 ED Course: 12:00 Patient arrived in ED. as 12:00 Roddy Mccarthy MD is Private Physician. as 12:00 Eliel Smith MD is Private Physician. as 12:02 Saleem Dsouza MD is Attending Physician. rn 12:07 Bed in low position. Side rails up X 1. Adult w/ patient. environmental monitoring technician on. Pulse ox tw2 on. NIBP on. Warm blanket given. 12:10 EKG done, by ED staff, reviewed by Saleem Dsouza MD. mb9 12:16 Triage completed. 5 12:16 Arm band placed on left wrist. 5 12:17 Destiney Benjamin, RN is Primary Nurse. mb9 12:32 Basic Metabolic Panel Sent. mb9 12:32 CBC with Diff Sent. mb9 12:32 NT PRO-BNP Sent. mb9 12:32 Troponin HS Sent. mb9 12:32 Inserted saline lock: 20 gauge in left forearm, using aseptic technique. Blood mb9 collected. 13:27 XRAY Chest (1 view) In Process Unspecified. EDMS 13:54 Roddy Mccarthy MD is Hospitalizing Provider. rn 13:54 SARS RAPID Sent. mb9 16:26 Patient maintains SpO2 saturation greater than 95% on room air. tw2 16:43 No provider procedures requiring assistance completed. mb9 16:46 Patient admitted, IV remains in place. mb9 Administered Medications: 13:54 Drug: Lasix (furosemide) 40 mg Route: IVP; Site: left forearm; mb9 16:27 Follow up: Response: No adverse reaction mb9 Medication: 12:18 VIS not applicable for this client. mb9 Outcome: 13:55 Decision to Hospitalize by Provider. rn 16:45 Admitted to Med/surg accompanied by tech, via wheelchair. mb9 16:45 Condition: stable 16:45 Discharge instructions given to patient, Instructed on the need for admit, Demonstrated understanding of instructions. 17:18 Patient left the ED. aa5 Signatures: Dispatcher [employer] Saida Velázquez Roman, MD MD rn Calderon, Audri RN RN aa5 Hoda Tidwell RN RN tw2 Harper Watts RN RN jh5 Destiney Benjamin RN RN mb9
--- NOTE | 2022-10-01 13:56 | EDPHYS ---
Physician Documentation [facility] Name: Eder Girard Age: 86 yrs Sex: Female : 1935 Arrival Date: 10/01/2022 Time: 12:00 Bed 2 Private MD: Eliel Smith S; Roddy Mccarthy ED Physician Saleem Dsouza HPI: 10/01 12:47 This 86 yrs old Female presents to ER via Ambulatory with complaints of afib, sob. rn 12:48 The patient has shortness of breath at rest, with light activity. Onset: The rn symptoms/episode began/occurred at an unknown time. Duration: The symptoms are intermittent. The patient's shortness of breath is aggravated by exertion, light activity, supine position, is alleviated by nothing. Associated signs and symptoms: Pertinent positives: non-productive cough, Pertinent negatives: chest pain, fever, hemoptysis. Severity of symptoms: At their worst the symptoms were mild in the emergency department the symptoms are unchanged. The patient has experienced similar episodes in the past. The patient has been recently seen by a physician:. Pt with hx of afib, recent increased or addition of metoprolol, had appt with Dr. Smith today at 2PM, was possibly going to get cardioverted, came here because of sob. No chest pain. . Historical: - Allergies: 12:16 Codeine; jh5 12:16 PENICILLINS; jh5 - PMHx: 12:16 Atrial Fib; bowel obstruction; Hypertension; jh5 - Immunization history:: Adult Immunizations up to date. - Social history:: Smoking status: Patient denies any tobacco usage or history of. - Family history:: not pertinent. - Hospitalizations: : No recent hospitalization is reported. ROS: 12:48 Constitutional: Negative for fever, chills, and weight loss, Eyes: Negative for injury, rn pain, redness, and discharge, Cardiovascular: Negative for chest pain, and edema, Respiratory: Negative for wheezing, and pleuritic chest pain, Abdomen/GI: Negative for abdominal pain, nausea, vomiting, diarrhea, and constipation, Back: Negative for injury and pain, MS/Extremity: Negative for injury and deformity, Skin: Negative for injury, rash, and discoloration, Neuro: Negative for headache, weakness, numbness, tingling, and seizure. Exam: 12:35 ECG was reviewed by the Attending Physician. rn 12:48 Constitutional: This is a well developed, well nourished patient who is awake, alert, rn and in no acute distress. Head/Face: Normocephalic, atraumatic. Eyes: Periorbital areas with no swelling, redness, or edema. Cardiovascular: Regular rate, irregular rhythm. No pulse deficits. Respiratory: No increased work of breathing, no retractions or nasal flaring. Abdomen/GI: soft, non-tender Skin: Warm, dry MS/ Extremity: Pulses equal, no cyanosis Neuro: Awake and alert, GCS 15 Vital Signs: 12:14 BP 164 / 79; Pulse 96; Resp 16; Temp 98.6; Pulse Ox 98% ; Weight 68.04 kg; Height 5 ft. jh5 0 in. (152.40 cm); Pain 3/10; 12:32 BP 164 / 79; Pulse 84; Resp 18; Pulse Ox 100% on R/A; mb9 13:39 BP 164 / 79; Pulse 81; Resp 20; Pulse Ox 98% on R/A; mb9 14:30 BP 137 / 85; Pulse 85; Resp 17; Pulse Ox 99% on R/A; tw2 15:30 BP 136 / 78; Pulse 81; Resp 17; Pulse Ox 97% on R/A; tw2 16:24 BP 111 / 82; Pulse 91; Resp 17; Pulse Ox 97% on R/A; tw2 12:14 Body Mass Index 29.29 (68.04 kg, 152.40 cm) 5 MDM: 12:02 Patient medically screened. rn 13:37 Differential diagnosis: CHF exacerbation, Myocardial Infarction pulmonary edema, afib, rn aflutter. Data reviewed: vital signs, nurses notes, lab test result(s), EKG, radiologic studies, plain films, and as a result, I will admit patient. Counseling: I had a detailed discussion with the patient and/or guardian regarding: the historical points, exam findings, and any diagnostic results supporting the discharge/admit diagnosis, lab results, radiology results, the need for further work-up and treatment in the hospital. Response to treatment: the patient's symptoms have mildly improved after treatment, and as a result, I will admit patient. Admission orders: after a detailed discussion of the patient's condition and case, the admit orders are written by me. ED course: Consulted with Dr. Armstrong, plan to admit with cardioversion tomorrow. . 10/01 12:23 Order name: Basic Metabolic Panel; Complete Time: 13:07 rn 10/01 12:23 Order name: CBC with Diff; Complete Time: 13:07 rn 10/01 12:23 Order name: NT PRO-BNP; Complete Time: 13:07 rn 10/01 12:23 Order name: Troponin HS; Complete Time: 13:07 rn 10/01 13:16 Order name: Urine Dipstick-Ancillary; Complete Time: 13:20 EDMS 10/01 13:48 Order name: SARS RAPID rn 10/01 12:23 Order name: XRAY Chest (1 view); Complete Time: 13:35 rn 10/01 12:23 Order name: EKG; Complete Time: 12:23 rn 10/01 12:23 Order name: Cardiac monitoring; Complete Time: 12:32 rn 10/01 12:23 Order name: EKG - Nurse/Tech; Complete Time: 12:32 rn 10/01 12:23 Order name: IV Saline Lock; Complete Time: 12:32 rn 10/01 12:23 Order name: Labs collected and sent; Complete Time: 12:32 rn 10/01 12:23 Order name: O2 Per Protocol; Complete Time: 12:32 rn 10/01 12:23 Order name: O2 Sat Monitoring; Complete Time: 12:32 rn 10/01 13:15 Order name: Urine Dipstick-Ancillary (obtain specimen); Complete Time: 13:15 iw EC:35 Rate is 71 beats/min. Rhythm is irregularly irregular. QRS [place] is Normal. [place] interval rn is normal. QRS interval is normal. QT interval is normal. No Q waves. T waves are Normal. No ST changes noted. Clinical impression: Atrial Fibrillation. Interpreted by me. Reviewed by me. Administered Medications: 13:54 Drug: Lasix (furosemide) 40 mg Route: IVP; Site: left forearm; mb9 16:27 Follow up: Response: No adverse reaction mb9 Disposition Summary: 10/01/22 13:55 Hospitalization Ordered Hospitalization Status: Inpatient Admission rn Provider: Roddy Mccarthy rn Location: Telemetry/[facility] (Inpatient) rn Condition: Stable rn Problem: an ongoing problem rn Symptoms: have improved rn Bed/Room Type: Standard rn Room Assignment: 221(10/01/22 16:26) mb9 Diagnosis - Persistent atrial fibrillation rn - Acute pulmonary edema rn - Dyspnea, unspecified rn Forms: - Medication Reconciliation Form rn - SBAR form rn Signatures: Dispatcher [employer] Megan Deluca RN Saleem Vaughn MD MD rn Rees, Jessica, RN RN [facility] Destiney Benjamin RN RN 9 Corrections: (The following items were deleted from the chart) 16:26 13:55 rn mb9
[2022-10-01 14:12] LABS: SARS-CoV-2 Antigen Rapid Res Negative (Negative)
[2022-10-01] MEDS ORDERED: ONDANSETRON 4 MG/2 ML VIAL IV PRN (16:34)
--- NOTE | 2022-10-01 17:41 | CON ---
Date of Consultation: 10/01/2022 Reason For Consultation: Atrial fibrillation, flutter, and shortness of breath. History Of Present Illness: This is an elderly female, known to have atrial fibrillation. She has b een seen by EP and the patient has been well controlled on Multaq and she is on Eliquis; however, for the past 2-3 days, she has been feeling very weak with shortness of breath and orthopnea and lower e xtremity edema, no chest pain and feels generally not well. Upon arrival to the emergency room, she was in atrial fibrillation, rate was controlled; however, she has signs of congestive heart failure. Past Medical History: Atrial fibrillation, hypertension. Medications: Refer to reconciliation sheet for detailed list. Allergies: CODEINE AND PENICILLIN. Family History: No premature coronary artery disease or cancer. Social History: She does not smoke or drink. Does not use any drugs. Review of Systems: All systems reviewed and they were negative except what mentioned in HPI. Physical Examination: Vital signs: Reviewed. Head and Neck: Pupils are equal, reactive to light. Intact eye movements. Mild JVD elevation. No cervical lymphadenopathy. Neck is supple. Thyroid is not enlarged. Lungs: Faint crackles in both bases. No accessory muscle use or muscle retraction. Heart: Irregularly irregular. No extra sounds. Abdomen: Soft, nontender. Bowel sounds positive. No organomegaly. No masses or hernia. No rigidi ty or rebound. Extremities: No clubbing or cyanosis. Intact pulses. Trace edema. Skin: No rash. Neurologic: Alert, awake, oriented x3. No acute focal deficits appreciated. Lymph Nodes: No cervical or axillary lymphadenopathy. Investigations: Chest x-ray was with CHF picture. NT-proBNP is 1371. Troponin is negative. BUN is 20 and creatinine is 0.95. Hemoglobin is 13.8. On EKG, she is having atrial flutter with rate bein g controlled. Assessment And Recommendations: 1.Acute on chronic congestive heart failure exacerbation. This is likely diastolic dysfunction. I recommend a low-dose Lasix 20 mg IV q.12 hours. Carefully monitor BUN, creatinine, electrolytes. 2.Atrial fibrillation, which could be contributing to her congestive heart failure. To continue the Eliquis and if she has been taking the Eliquis without interruption, plan for possible cardioversion tomorrow. The patient is a well-known patient to Dr. Baradhi, who will discuss further with him. /GREY Voice ID: [id number] Report ID: [id number]
[2022-10-01 17:44] VITALS: BMI 27.4
[2022-10-01] MEDS: METOPROLOL XL 50 MG TAB PO SCH (18:09)
[2022-10-01] MEDS: APIXABAN 5 MG TABLET PO SCH (19:49)
[2022-10-01] MEDS: ZOLPIDEM TARTRATE 5 MG TABLET PO SCH (21:36)
--- NOTE | 2022-10-02 02:17 | HP ---
Date of Admission: 10/01/2022 Chief Complaint: Shortness of breath, rapid heartbeat. History Of Present Illness: The patient states the above symptoms started approximately 24 hours franklin or to coming to the emergency room. She actually contacted Cardiology and was supposed to be seen in the afternoon; however, the symptoms became significant enough that she reported to the emergency ro om. Past Medical History: Patient has a long history of AFib and has been on various medications and act ually has been under good control with no known episodes over the past couple of years. She was seen by Cardiology last earlier this year with a negative workup. She does state when she noticed that t here was some increased pedal edema, which she does have from time to time and takes HCTZ on a p.r.n. basis. However, she is not usually short of breath with these episodes. Past history of hypertensi on, controlled; small bowel obstruction, intermittent with last episode a number of years ago and was hospitalized on a couple of occasions and treated conservatively. Family History: Noncontributory. Social History: Nonsmoker. Physical Examination: General: Patient is a comfortable, elderly female with episodic AFib with controlled rate. Vital Signs: Blood pressure stable. Respiratory rate normal. Head And Neck: Normocephalic. Pupils equal and reactive to light and accommodation. Fundi negative . Trachea midline. Thyroid not palpable. ENT negative. Chest: Occasional rales at both bases. Adequate air entry and movement bilaterally. Cardiovascular: PMI at midclavicular line. Heart sounds normal. Peripheral pulses are present and equal bilaterally. Abdomen: No organomegaly. Bowel sounds present. Extremities: Good tone and movement bilaterally. Reflexes physiologic. Rectal/Pelvic: Deferred. Impression: Atrial fibrillation with controlled rate; hypertension, controlled; congestive heart chris lure, acute onset. Plan: Patient will be admitted, seen by Cardiology, plan is for cardioversion in the next 24 hours. Given Lasix in the meantime and maintained on her beta joby and will be monitored. HR/MODL Voice ID: [id number]
[2022-10-02] MEDS: METOPROLOL XL 50 MG TAB PO SCH ×2 (05:45→18:24)
[2022-10-02 05:53] LABS: Absolute Lymphocytes (CBC) 2.3 K/uL (0.7-4.9); Hematocrit 39.4 % (36.0-45.0); MCV 86.9 fL (80-100); RBC Red Blood Cell Count 4.53 M/uL (3.86-4.86)
[2022-10-02 06:13] LABS: Potassium 3.9 mmol/L (3.5-5.1)
[2022-10-02] MEDS: APIXABAN 5 MG TABLET PO SCH ×3 (08:48→21:08)
[2022-10-02] MEDS ORDERED: NA CHLORIDE 0.9% 500 ML ONE (11:12)
[2022-10-02] MEDS ORDERED: HYDRALAZINE HCL 20 MG/ML VIAL ONE (11:13)
[2022-10-02] MEDS ORDERED: MIDAZOLAM HCL 5 ML ONE (11:13)
[2022-10-02] MEDS ORDERED: METOPROLOL TARTRATE 5 MG/5 ML INJ IV ONE (11:13)
[2022-10-02] MEDS ORDERED: ATROPINE SULF 1 MG/10 ML SYR IV ONE (11:13)
[2022-10-02] MEDS ORDERED: FLUMAZENIL 0.1 MG/ML (5 mL VIAL) IV ONE (11:13)
[2022-10-02] MEDS ORDERED: MIDAZOLAM HCL 2 MG/2 ML INJ ONE (11:18)
[2022-10-02] MEDS ORDERED: DRONEDARONE 400 MG PO SCH ×2 (17:00→21:00)
--- NOTE | 2022-10-02 19:45 | PN ---
Date of Progress Note: 10/02/2022 The patient underwent successful cardioversion this morning and it is late this afternoon and she is still stable. Discussion, as far as discharge is concerned as patient has a rather ill debilitated e lderly at home; however, she also states she has been under significant family stresses, it i s suggested therefore she stay overnight and probably discharge in the a.m. once she is stable. HR/MODL Voice ID: [id number] Report ID: [id number]
[2022-10-02] MEDS: ZOLPIDEM TARTRATE 5 MG TABLET PO SCH (21:08)
--- NOTE | 2022-10-02 21:45 | OP ---
Date of Procedure: 10/02/2022 Surgeon: Eliel Smith MD Straw Hat Brusher: Ms. Kandi Foreman. Indication: Admitted on 10/01/2022 with recurrent atrial fibrillation that had failed Multaq and met oprolol. Procedure In Detail: Brought to the cath today on 10/02/2022 and received 7 mg of Versed for total s edation. Received 200 joules x1 shock and she converted to sinus rhythm. There were no complication s or blood loss. Final Diagnosis: Status post successful cardioversion from atrial fibrillation to sinus rhythm. Discharge Instructions: The patient will go home back on her anticoagulation, Multaq, and metoprolol and I will see her back in the office in the next week or 2. If she goes back into atrial fibrillat ion, we will consider AV vielka ablation and a pacemaker. VIRGILIO/GREY Voice ID: [id number] Report ID: [id number]
--- NOTE | 2022-10-03 06:35 | EKG ---
Test Date: 2022-10-01 Test Time: 12:13:30 Director Stars: MB MEASUREMENT RESULTS: Intervals: Rate: 71 [place]: QRSD: 74 QT: 390 QTc: 423 [place]: P: [place]: QRS: 13 T: 72 INTERPRETIVE STATEMENTS: Atrial fibrillation Nonspecific ST and T wave abnormality, probably digitalis effect Abnormal ECG Compared to ECG 11/03/2018 16:00:29 ST (T wave) deviation now present Sinus rhythm no longer present Electronically Signed On 10-03-22 06:30:56 LEASING DIRECTOR by Eliel Smith
[2022-10-03] MEDS: METOPROLOL XL 50 MG TAB PO SCH (06:42)
[2022-10-03] MEDS ORDERED: DRONEDARONE 400 MG PO SCH (08:00)
[2022-10-03] MEDS ORDERED: FUROSEMIDE 20 MG TABLET PO SCH (09:00)
[2022-10-03] MEDS ORDERED: DRONEDARONE 400 MG TAB PO SCH (09:00)
[2022-10-03] MEDS: APIXABAN 5 MG TABLET PO SCH (09:14)
[2022-10-03 09:15] VITALS: BP 125/59
[2022-10-03 10:46] VITALS: TEMP 97.5
[2022-10-03 10:52] VITALS: O2SAT 93
--- NOTE | 2022-10-03 14:55 | EKG ---
Test Date: 2022-10-02 Test Time: 11:29:44 Clinical Trials Nurse: ANN-MARIE MEASUREMENT RESULTS: Intervals: Rate: 71 VT: 162 QRSD: 72 QT: 424 QTc: 460 [place]: P: 47 VT: 162 QRS: -19 T: -27 INTERPRETIVE STATEMENTS: Normal sinus rhythm Minimal voltage criteria for LVH, may be normal variant Nonspecific ST abnormality Abnormal ECG Electronically Signed On 10-03-22 14:53:18 SPECIAL DELIVERY CLERK by Rome Armstrong
--- NOTE | 2022-10-05 22:48 | CON ---
Date of Consultation: 10/02/[address] Roddy Mccarthy on 10/01/2022. I saw the patient on 10/02/2022. Reason For Consultation: Recurrent atrial fibrillation. History Of Present Illness: Ms. Girard is 86, has a history of hypertension, small bowel obstruction , paroxysmal atrial fibrillation in the past. She has failed amiodarone. She had failed sotalol, scott d failed beta-joby, eventually was in normal rhythm, on Multaq and metoprolol, came in with recurr ent atrial fibrillation, rapid ventricular response. Multaq has been held for now. Complains of krista rtness of breath and fatigued. No chest pain. No syncope. Allergies: TO CODEINE AND PENICILLIN. Review of Systems: Negative. Social History: Negative. Family History: Negative. Medications: At home include Multaq, metoprolol, and Eliquis. Physical Examination: Vital Signs: Stable. Atrial fibrillation, rate of 110. HEENT: Negative. Neck: Supple. No bruit. Chest: Clear. Cardiac: Revealed atrial fibrillation. Abdomen: Benign. Extremities: Revealed no clubbing, cyanosis, or edema. Diagnostic Data: Normal except for a BNP of 1301. Impression And Plan: Recurrent atrial fibrillation despite Multaq and metoprolol. Continue Eliquis. Symptomatic atrial fibrillation. We will plan and direct current cardioversion today. The patient understands the risk and the benefits of the procedure. She agreed to proceed. Her blood pressure is well controlled. VIRGILIO/GREY Voice ID: [id number] Report ID: [id number]
== END 2022-10-03 11:58 | disposition home or self-care (01) | DRG 308 ==
LOC: ER 11:59 → ERHOLD 16:05 → 2ND 16:53
PROVIDERS: ADMIT Family Medicine; ATTEND Family Medicine
PROC: 5A2204Z Restoration of Cardiac Rhythm, Single (ICD-10-PCS; principal; 2022-10-02)
DX: I48.91 Unspecified atrial fibrillation (principal); I50.33 Acute on chronic diastolic (congestive) heart failure; I11.0 Hypertensive heart disease with heart failure; I48.92 Unspecified atrial flutter; Z88.0 Allergy status to penicillin; Z20.822 Contact with and (suspected) exposure to COVID-19
CPT/HCPCS: 36415; 71045; 80048; 81003; 83880; 84484; 85025; 87811; 92960; 93005; 96374; 99285; J0360; J1940; J2250; J7040

== ENCOUNTER 2023-06-26 10:51 | Emergency (ER) | payer OTHER ==
--- OUTSIDE RECORDS SUMMARY | 2023-06-26 10:54 | XMS REPORT | Continuity of Care Document ---
:1935 Author Organization [facility] t Address [address] [facility] [address] [place] [id number] Care Team Providers Name Role Phone CAROLIN SAUNDERS Attending Clinician Unavailable Payers Payer Name Policy Type Policy Number Effective Date Expiration Date S ourwendy [employer] MEDICARE ERS [id number] 2017 00:00:00 [facility] [id number] 2020 MEDICARE ADV HMO 00:00:00 Problems This patient has no known problems. Allergies, Adverse Reactions, Alerts Allergy Allergy Status Severity Reaction(s) Onset Inactive Treating Comm ents Source Name Type Date Date Clinician CODEINE DRUG Active Unknown-Cmnt 2017-0 Uni vers INGREDI 5-30 ity of 00:00: [facility] PENICILL Drug Active Unknown-Cmnt 2017-0 Un luc INS Class 5-30 ity of 00:00: [address] Medications This patient has no known medications. Procedures This patient has no known procedures. Encounters Start End Encounter Admission Attending Care Care Encounter Source Date/Time Date/Time Type Type Clinicians Facility Department ID 2021-09-13 2021-09-13 Outpatient R [facility] [id number] [facility] 13:[id number]-09-13 2021-09-13 Outpatient R [facility] [id number] [facility]-01[facility] 2021-01-17 Outpatient Jenny SAUNDERS [facility] [id number] Univers 11:40:00 11:40:00 [facility] 2021-01-17 2021-01-17 Outpatient Jenny SAUNDERS [facility] [id number] Univers 11:40:00 11:40:00 CAROLIN [id number] [facility] 2020-12-20 2020-12-20 Outpatient Jenny SAUNDERS [facility] [id number] [facility] 11:00:00 11:00:00 CAROLIN chandler [facility] Results This patient has no known results.
[2023-06-26 11:30] LABS: Absolute Lymphocytes (CBC) 1.9 K/uL (0.7-4.9); Lymphocytes % 32.9 % (15.3-44.8); MCV 85.3 fL (80-100); MPV 7.7 fL (7.6-11.3); RBC Red Blood Cell Count 4.34 M/uL (3.86-4.86)
[2023-06-26 11:48] LABS: Potassium 4.1 mEq/L (3.5-5.1); Troponin High Sensitivity 5.8 pg/mL (<58.9)
[2023-06-26 11:58] LABS: Protime INR 1.95
--- NOTE | 2023-06-26 12:21 | RAD REPORT ---
EXAM DESCRIPTION: Normant Single View06/26/2023 12:03 pm CLINICAL HISTORY: sob COMPARISON: 2021 FINDINGS: The right lateral costophrenic sulcus is not included in the field of view is not evaluate d The visualized lungs appear clear of acute infiltrate. The heart is normal size
--- NOTE | 2023-06-26 14:25 | ER ---
Nurse's Notes [facility] Name: Eder Girard Age: 87 yrs Sex: Female : 1935 Arrival Date: 06/26/2023 Time: 10:51 Bed 8 Private MD: Roddy Mccarthy Diagnosis: Chronic atrial fibrillation;Palpitations;Syncope Near Presentation: 06/26 11:08 Chief complaint: Patient states: irregular heartbeat with diaphoresis (reports hx of me1 afib). Coronavirus screen: Vaccine status: Patient reports receiving the 2nd dose of the covid vaccine. At this time, the client does not indicate any symptoms associated with coronavirus-19. Ebola Screen: No symptoms or risks identified at this time. Initial Sepsis Screen: Does the patient meet any 2 criteria? No. Patient's initial sepsis screen is negative. Does the patient have a suspected source of infection? No. Patient's initial sepsis screen is negative. Risk Assessment: Do you want to hurt yourself or someone else? Patient reports no desire to harm self or others. Onset of symptoms was June 26, 2023. 11:08 Method Of Arrival: Wheelchair in1 11:08 Acuity: MARC 3 me1 Triage Assessment: 11:09 General: Appears comfortable, well groomed, well developed, well nourished, Behavior is me1 calm, cooperative, appropriate for age, Reports having an episode of irregular heartbeat this morning that caused her to be diaphoretic. Pain: Denies pain. Neuro: Level of Consciousness is awake, alert, obeys commands, Oriented to person, place, time, situation, Appropriate for age. Cardiovascular: Capillary refill < 3 seconds Patient's skin is warm and dry. Respiratory: Respiratory effort is even, unlabored, Respiratory pattern is regular, symmetrical. Historical: - Allergies: 11:09 Codeine; me1 11:09 PENICILLINS; me1 - Home Meds: 11:09 multaq [Active]; eliquis [Active]; metoprolol [Active]; nexium [Active]; linzess me1 [Active]; xanax [Active]; - PMHx: 11:09 Hypertension; bowel obstruction; Atrial Fib; me1 - Immunization history:: Adult Immunizations up to date. - Social history:: Smoking status: Patient denies any tobacco usage or history of. - Family history:: not pertinent. Screenin:15 [facility] ED Fall Risk Assessment (Adult) History of falling in the last 3 months, ko1 including since admission No falls in past 3 months (0 pts) Confusion or Disorientation No (0 pts) Intoxicated or Sedated No (0 pts) Impaired Gait No (0 pts) Mobility Assist Device Used No (0 pt) Altered Elimination No (0 pt) Score/Fall Risk Level 0 - 2 = Low Risk Oriented to surroundings, Maintained a safe environment, Educated pt \T\ family on fall prevention, incl call for assistance when getting out of bed, Assessed \T\ reinforced patient's understanding of fall precautions, Provided non-skid footwear, Hourly rounding (assess needs \T\ fall precautionary measures) done, Used ambulatory aids as needed (educated on \T\ assisted with), Used gait belt as appropriate. Abuse screen: Denies threats or abuse. Denies injuries from another. Nutritional screening: No deficits noted. Tuberculosis screening: No symptoms or risk factors identified. Assessment: 12:17 General: Appears in no apparent distress. comfortable, Behavior is calm, cooperative, ko1 appropriate for age. Pain: Complains of pain in back Pain does not radiate. Pain began gradually. Neuro: No deficits noted. Cardiovascular: Reports palpitations. Respiratory: Reports shortness of breath at rest. GI: No deficits noted. : No deficits noted. EENT: No deficits noted. Derm: No deficits noted. Musculoskeletal: No deficits noted. 14:00 Reassessment: Patient appears in no apparent distress at this time. Patient is alert, bp oriented x 3, equal unlabored respirations, skin warm/dry/pink. 15:00 Reassessment: DC HOME VIA WC WITH FAMILY. bp Vital Signs: 11:09 BP 120 / 76; Pulse 79; Resp 17; Temp 97.7(O); Pulse Ox 97% on R/A; Weight 68.04 kg; me1 Height 5 ft. 3 in. ; 12:15 BP 104 / 66; Pulse 69; Resp 18; Pulse Ox 95% on R/A; ko1 13:47 BP 117 / 64; Pulse 73; Resp 16; Pulse Ox 99% ; ko1 15:00 BP 119 / 74; Pulse 70; Resp 16; Pulse Ox 96% ; bp 11:09 Body Mass Index 26.57 (68.04 kg, 160.02 cm) me1 Chalino Coma Score: 12:41 Eye Response: spontaneous(4). Motor Response: obeys commands(6). Verbal Response: cp3 oriented(5). Total: 15. ED Course: 10:52 Patient arrived in ED. rg4 10:52 Roddy Mccarthy MD is Private Physician. rg4 10:57 Claudia Hastings MD is Attending Physician. cp3 10:58 Nnamdi Avila, RN is Primary Nurse. bp 11:09 Triage completed. me1 11:09 Arm band placed on Patient placed in waiting room. me1 11:25 Inserted saline lock: 20 gauge in right antecubital area, using aseptic technique. dd1 12:05 XRAY Chest (1 view) In Process Unspecified. EDMS 12:15 Patient has correct armband on for positive identification. Placed in gown. Bed in low ko1 position. Call light in reach. Side rails up X2. Provided Education on: labs/tests. Client placed on continuous cardiac and pulse oximetry monitoring. NIBP monitoring applied. electronic device monitor on. Door closed. Noise minimized. Warm blanket given. 12:15 Patient maintains SpO2 saturation greater than 95% on room air. ko1 14:24 Rome Armstrong MD is Referral Physician. cp3 15:00 No provider procedures requiring assistance completed. IV discontinued, intact, bp bleeding controlled, No redness/swelling at site. Pressure dressing applied. Administered Medications: No medications were administered Outcome: 14:25 Discharge ordered by . cp3 15:00 Discharged to home via wheelchair, with family. bp 15:00 Condition: stable 15:00 Discharge instructions given to patient, family, Instructed on discharge instructions, follow up and referral plans. Demonstrated understanding of instructions, follow-up care. 15:01 Patient left the ED. bp Signatures: Dispatcher [employer] EDNE Claudia Hastings MD MD cp3 Sola Foreman rg4 Nnamdi Avila, RN RN bp Candida Jackson, RN RN ko1 Omayra Alarcon RN RN me1 Niles Gee, RN RN dd1 Corrections: (The following items were deleted from the chart) 12:31 12:27 Family history: not pertinent, cp3 cp3
--- NOTE | 2023-06-26 14:25 | EDPHYS ---
Physician Documentation [facility] Name: Eder Girard Age: 87 yrs Sex: Female : 1935 Arrival Date: 06/26/2023 Time: 10:51 Bed 8 Private MD: Roddy Mccarthy ED Physician Claudia Hastings HPI: 06/26 12:27 This 87 yrs old Female presents to ER via Wheelchair with complaints of Irregular cp3 Pulse, Back Pain, Shortness Of Breath. 12:27 Patient is a 87-year-old female with a history of atrial fibrillation on cp3 anticoagulation, history of hypertension, history of small bowel obstruction, history of abnormal stress test on Friday with plans for heart cath on July 21 who presents to the ED secondary to generalized weakness with episode of irregular feeling heart palpitations that seem like they are racing with some associated shortness of breath and sweating. The episode lasted roughly 5 minutes. The patient called her daughters who insisted she come to the ED. The symptoms have completely resolved upon ED arrival. Patient denies chest pain, shortness of breath, chills, fever, dyspnea on exertion. The patient endorses mild fatigue. Patient with a secondary complaint of lower back pain that she gets intermittently that is localized to the lumbar region with radiculopathy features to the posterior thighs without numbness or paresthesias patient is ambulatory without assistance. Patient is pain-free currently. Patient is accompanied by her daughters at the bedside who endorses that they encouraged her mother to come to the emergency room because she seemed very weak upon calling them prior to arrival. And endorsed the patient looks much improved. Historical: - Allergies: 11:09 Codeine; me1 11:09 PENICILLINS; me1 - Home Meds: 11:09 multaq [Active]; eliquis [Active]; metoprolol [Active]; nexium [Active]; linzess me1 [Active]; xanax [Active]; - PMHx: 11:09 Hypertension; bowel obstruction; Atrial Fib; me1 - Immunization history:: Adult Immunizations up to date. - Social history:: Smoking status: Patient denies any tobacco usage or history of. - Family history:: not pertinent. ROS: 12:27 Constitutional: Negative for fever, chills, and weight loss. cp3 12:27 Constitutional: Positive for 12:27 All other systems are negative. cp3 12:32 Cardiovascular: Positive for palpitations. cp3 12:32 Respiratory: Positive for shortness of breath. 12:32 Abdomen/GI: Negative for abdominal pain, nausea, vomiting, anorexia. 12:32 Back: Positive for radiated pain, of the lumbar area. 12:32 : Negative for urinary symptoms. 12:32 Psych: Negative for anxiety, depression. 12:40 Eyes: Negative for acute changes, blurry vision, discharge. cp3 12:40 ENT: Negative for injury or acute deformity, drainage from ear(s). 12:40 Neck: Negative for injury or acute deformity, mass, pain with movement, pain at rest. 12:40 MS/extremity: Negative for acute changes, injury or acute deformity, abrasion. 12:40 Skin: Positive for 12:41 Constitutional: Positive for fatigue. cp3 12:41 Neuro: Positive for Generalized weakness, Negative for altered mental status, dizziness, gait disturbance, headache, hearing loss, numbness. Exam: 12:33 Constitutional: This is a well developed, well nourished patient who is awake, alert, cp3 and in no acute distress. Eyes: Pupils equal round and reactive to light, extra-ocular motions intact. Lids and lashes normal. Conjunctiva and sclera are non-icteric and not injected. Cornea within normal limits. Periorbital areas with no swelling, redness, or edema. ENT: Nares patent. No nasal discharge, no septal abnormalities noted. Tympanic membranes are normal and external auditory canals are clear. Oropharynx with no redness, swelling, or masses, exudates, or evidence of obstruction, uvula midline. Mucous membranes moist. Neck: Trachea midline, no thyromegaly or masses palpated, and no cervical lymphadenopathy. Supple, full range of motion without nuchal rigidity, or vertebral point tenderness. No Meningismus. Chest/axilla: Normal chest wall appearance and motion. Nontender with no deformity. No lesions are appreciated. Cardiovascular: Irregular rhythm with a rate of 69 with a normal S1 and S2. No gallops, murmurs, or rubs. Normal PMI, no JVD. No pulse deficits. Respiratory: Lungs have equal breath sounds bilaterally, clear to auscultation and percussion. No rales, rhonchi or wheezes noted. No increased work of breathing, no retractions or nasal flaring. Abdomen/GI: Soft, non-tender, with normal bowel sounds. No distension or tympany. No guarding or rebound. No evidence of tenderness throughout. Back: No spinal tenderness. No costovertebral tenderness. Full range of motion. Neuro: Awake and alert, GCS 15, oriented to person, place, time, and situation. Cranial nerves II-XII grossly intact. Motor strength 5/5 in all extremities. Sensory grossly intact. Cerebellar exam normal. Normal gait. Psych: Awake, alert, with orientation to person, place and time. Behavior, mood, and affect are within normal limits. Vital Signs: 11:09 BP 120 / 76; Pulse 79; Resp 17; Temp 97.7(O); Pulse Ox 97% on R/A; Weight 68.04 kg; me1 Height 5 ft. 3 in. ; 12:15 BP 104 / 66; Pulse 69; Resp 18; Pulse Ox 95% on R/A; ko1 13:47 BP 117 / 64; Pulse 73; Resp 16; Pulse Ox 99% ; ko1 15:00 BP 119 / 74; Pulse 70; Resp 16; Pulse Ox 96% ; bp 11:09 Body Mass Index 26.57 (68.04 kg, 160.02 cm) nj1 Chalino Coma Score: 12:41 Eye Response: spontaneous(4). Motor Response: obeys commands(6). Verbal Response: cp3 oriented(5). Total: 15. MDM: 10:57 Patient medically screened. 3 11:25 Data reviewed: EKG. 3 11:25 ED course: EKG interpreted by me at 11:11 AM. Patient with a regular rhythm atrial cp3 fibrillation with a normal rate of 68 no evidence of acute IL. 12:33 Differential diagnosis: The differential diagnosis includes acute coronary syndrome, cp3 pulmonary edema, acute CHF, A-fib with RVR, arrhythmia, pulmonary embolus, lumbar radiculopathy. Patient's D-dimer and high-sensitivity troponin are negative. Chest x-ray unremarkable without change. Consideration of Admission/Observation Escalation of care including admission/observation considered. Awaiting callback from patient's geochemist for consideration of admission observed discharge home with appropriate follow-up. Management of patient was discussed with the following: Cardiology-Dr. Armstrong - paged 1230pm. Independent interpretation of the following test(s) in the Emergency Department EKG: See my EKG interpretation above Rhythm Strip Interpretation Rate: Rate 69, irregular rhythmBPM. 12:33 Test considered but Not performed: Other Details CT PE [id number] negative, cp3 negative Wells criteria. Historians other than the Patient: Daughter/Son: Patient's daughter at bedside who endorsed that her primary concern is patient seeing generally weak of shortness of breath and weakness. ED course: EKG interpreted by me at 11:11 AM: Atrial fibrillation with a rate of 68 no evidence of acute IL QTc 400 QTc 425. 14:18 External Records Reviewed: Outpatient record: Patient with abnormal stress test on 3 Friday scheduled for heart cath at the end of June. Care significantly affected by the following chronic conditions: Hypertension, Atrial fibrillation, . Scoring Tools HEART Score: History: Moderately Suspicious (1) ECG: Non specific repolarization disturbance/ LBTB/ PM (1) Age: > or = 65 years (2) Risk Factors: > or = 3 Risks factors for Atherosclerotic disease (2). ED course: Repeat cardiac enzymes are negative. Awaiting callback from patient's geochemist. Patient is asymptomatic at this time. Hospitalization considered and patient declined secondary to resolution in symptoms. Patient endorses she will return if symptoms were to repeat.. 14:21 Consideration of Admission/Observation Escalation of care including cp3 admission/observation considered. Patient declined hospitalization. Scoring Tools. Special discussion: Based on the patient's history, exam, and Dx evaluation, there is no indication for emergent intervention or inpatient Tx. It is understood by the patient/guardian that if the Sx's persist or worsen they need to return immediately for re-evaluation. 14:23 ED course: quality assurance monitor chassis interpreted by me: Rate of 73 atrial fibrillation. cp3 06/26 11:16 Order name: Basic Metabolic Panel; Complete Time: 13:07 cp3 06/26 11:16 Order name: CBC with Diff; Complete Time: 13:07 cp3 06/26 11:16 Order name: Troponin HS; Complete Time: 13:07 cp3 06/26 11:24 Order name: D-Dimer; Complete Time: 13:07 cp3 06/26 11:24 Order name: Protime (+inr); Complete Time: 13:07 cp3 06/26 11:24 Order name: Ptt, Activated; Complete Time: 13:07 cp3 06/26 13:07 Order name: Troponin High Sensitivity; Complete Time: 14:15 cp3 06/26 14:17 Interpretation: Within normal limits. cp3 06/26 11:16 Order name: XRAY Chest (1 view); Complete Time: 12:27 cp3 06/26 12:27 Interpretation: Chest x-ray interpreted by me no acute cardiopulmonary process. Chest cp3 x-ray compared to imaging on 09/2022 no change in heart size or size of mediastinum no acute pulmonary edema. 06/26 11:16 Order name: EKG; Complete Time: 11:16 cp3 06/26 11:16 Order name: Cardiac monitoring; Complete Time: 11:16 cp3 06/26 11:16 Order name: EKG - Nurse/Tech; Complete Time: 11:16 cp3 06/26 11:16 Order name: IV Saline Lock; Complete Time: 11:25 cp3 06/26 11:16 Order name: Labs collected and sent; Complete Time: 11:25 cp3 06/26 11:16 Order name: O2 Per Protocol; Complete Time: 11:16 cp3 06/26 11:16 Order name: O2 Sat Monitoring; Complete Time: 11:16 cp3 Administered Medications: No medications were administered Disposition Summary: 06/26/23 14:25 Discharge Ordered Location: Home cp3 Problem: an acute exacerbation cp3 Condition: Stable cp3 Diagnosis - Chronic atrial fibrillation cp3 - Palpitations cp3 - Syncope Near cp3 Followup: cp3 - With: Rome Armstrong MD - When: - Reason: Re-evaluation by your physician Discharge Instructions: - Discharge Summary Sheet cp3 - Atrial Fibrillation cp3 - Palpitations, [id number] cp3 Forms: - Medication Reconciliation Form cp3 - Thank You Letter cp3 - Antibiotic Education cp3 - Prescription Opioid Use cp3 - Patient Portal Instructions cp3 Signatures: Dispatcher [employer] Claudia Camacho MD MD cp3 Omayra Alarcon RN RN me1 Corrections: (The following items were deleted from the chart) 12:31 12:27 Family history: not pertinent, cp3 cp3 12:31 12:27 Constitutional: Positive for cp3 cp3 14:17 14:17 Abnormal. cp3 cp3
[2023-06-26 15:14] VITALS: TEMP 97.7
[2023-06-26 15:26] VITALS: BP 119/74; O2SAT 96
--- NOTE | 2023-06-30 13:18 | EKG ---
Test Date: 2023-06-26 Test Time: 11:11:47 District Scout Executive: BP MEASUREMENT RESULTS: Intervals: Rate: 68 [place]: QRSD: 74 QT: 400 QTc: 425 [place]: P: [place]: QRS: -7 T: 31 INTERPRETIVE STATEMENTS: Atrial fibrillation Nonspecific ST abnormality, probably digitalis effect Abnormal ECG Compared to ECG 10/02/2022 11:29:44 Sinus rhythm no longer present Left ventricular hypertrophy no longer present ST (T wave) deviation still present Electronically Signed On 06-30-23 13:11:30 CDT by Rome Armstrong
== END 2023-06-26 15:01 | disposition home or self-care (01) ==
LOC: ER 10:51
DX: I48.19 Other persistent atrial fibrillation (principal); Z79.01 Long term (current) use of anticoagulants; R55 Syncope and collapse; I10 Essential (primary) hypertension; Z88.0 Allergy status to penicillin; Z88.5 Allergy status to narcotic agent
CPT/HCPCS: 36415; 71045; 80048; 84484; 85025; 85379; 85610; 85730; 93005; 99285

== ENCOUNTER 2023-07-17 06:30 | Day surgery (SDC) | payer OTHER ==
[2023-07-14 11:45] LABS: Hematocrit 38.4 % (36.0-45.0); Lymphocytes % 35.9 % (15.3-44.8); MCV 84.8 fL (80-100); Platelets 295 thou/uL (152-406); RBC Red Blood Cell Count 4.52 M/uL (3.86-4.86)
[2023-07-14 11:51] LABS: Protime INR 1.99
[2023-07-14 12:06] LABS: Potassium 4.5 mEq/L (3.5-5.1)
--- NOTE | 2023-07-14 17:56 | EKG ---
Test Date: 2023-07-14 Test Time: 11:20:46 Furnace Converter: JAM MEASUREMENT RESULTS: Intervals: Rate: 70 [place]: QRSD: 76 QT: 398 QTc: 429 [place]: P: [place]: QRS: -13 T: -14 INTERPRETIVE STATEMENTS: Atrial fibrillation Nonspecific ST abnormality, probably digitalis effect Abnormal ECG Compared to ECG 06/26/2023 11:11:47 No significant changes Electronically Signed On 07-14-23 17:55:36 CDT by Rome Armstrong
[2023-07-17] MEDS ORDERED: HEPA 1000U/500MLS 2,000 UNIT/1,000 ML BAG IV ONE (06:58)
[2023-07-17] MEDS ORDERED: FENTANYL CITR 100 MCG/2 ML ONE (06:58)
[2023-07-17] MEDS ORDERED: LIDOCAINE 1% 20 ML MDV ONE (06:58)
[2023-07-17] MEDS ORDERED: CLOPIDOGREL 75 MG TABLET ONE (06:59)
[2023-07-17] MEDS ORDERED: MIDAZOLAM HCL 2 MG/2 ML INJ ONE (06:59)
[2023-07-17] MEDS ORDERED: ASPIRIN 325 MG TAB ONE (06:59)
[2023-07-17] MEDS ORDERED: VERAPAMIL HCL 10 MG/4 ML VIAL IV ONE (06:59)
[2023-07-17] MEDS ORDERED: HEPARIN 5000 UNIT/ML 1 ML VIAL ONE (06:59)
[2023-07-17] MEDS ORDERED: NITROGLYCERIN/D5W 25 MG/250 ML BTL IV ONE (07:00)
[2023-07-17] MEDS ORDERED: HEPARIN 10,000 UNIT/10 ML VIAL IV ONE (07:00)
[2023-07-17] MEDS ORDERED: TICAGRELOR 90 MG TABLET PO ONE (07:00)
[2023-07-17] MEDS ORDERED: ATROPINE SULF 1 MG/10 ML SYR IV ONE (07:00)
[2023-07-17] MEDS ORDERED: NITROGLYCERIN 100 MCG/ML SYR (for cath lab use only) IV ONE (07:00)
[2023-07-17] MEDS ORDERED: NA CHLORIDE 0.9% 500 ML ONE (07:06)
--- NOTE | 2023-07-17 08:55 | OP ---
Date of Procedure: 07/17/2023 Surgeon: RAS PAULSON Procedure Performed: Selective coronary angiogram. Indication: Abnormal stress test with chest pain. Access: Right radial artery 6-Australian closed with TR band. Complications: None. Bleeding: Less than 20 mL. Description Of Procedure: After the risks, benefits, and alternatives were explained, patient agreed to procedure and signed informed consent. [facility] was [facility], prepped and draped in sterile fashion. Then, I accessed the right radial artery using pediat stanley micropuncture kit, placed 6-Australian Slender sheath and took a 5-Australian [place] 4.0 catheter into the aortic root, engaged left main in the right coronary artery and took standard views and then removed the catheter and sheath, placed TR band with good hemostasis. Findings: 1.Left main: Large and normal. 2.LAD: Moderate-size vessel. Proximal segment is normal. Mid segment has a focal 50% stenosis. D iagonal branches are normal. The rest of the LAD tapers down to become small and no significant dise ase. 3.Left circumflex: It is large and codominant with luminal irregularities. 4.RCA is codominant circulation with no significant disease. Conclusion: Moderate coronary artery disease involving the mid LAD. Recommendation: Medical management. SR/MODL Voice ID: [id number] Report ID: [id number]
[2023-07-17 11:52] VITALS: BP 116/52; O2SAT 98
== END 2023-07-17 10:05 | disposition home or self-care (01) ==
LOC: PRE 06:30
PROVIDERS: ATTEND Internal Medicine
DX: I25.10 Atherosclerotic heart disease of native coronary artery without angina pectoris (principal); I48.0 Paroxysmal atrial fibrillation; I10 Essential (primary) hypertension; Z79.01 Long term (current) use of anticoagulants; Z79.899 Other long term (current) drug therapy; Z88.0 Allergy status to penicillin; Z88.5 Allergy status to narcotic agent; Z88.8 Allergy status to other drugs, medicaments and biological substances
CPT/HCPCS: 93005; 85025; 80048; 36415; 85610; 85730; 93454; 76937; C1893; Q9966; J1644; J2001; J2250; J3010; J7040; J0461